=== PATIENT | female | born 1955 | race Caucasian/White ===

== ENCOUNTER 2018-03-14 18:12 | Inpatient (IN) ==
[2018-03-14 22:02] LABS: BASO# 0.07 X1000 (0.0-0.2); EOS# 0.13 X1000 (0.0-0.7); EOS% 1.9 % (0.0-10.0); HEMATOCRIT 35.6 % (37.0-47.0); HEMOGLOBIN 10.7 g/dL (12.0-16.0); LYMPH# 1.45 X1000 (1.2-3.4); MCH 23.9 PG (27-31); MCHC 30.1 g/dL (33-37); MCV 79.5 FL (81-99); MONO# 0.67 X1000 (0.11-0.59); MONO% 9.7 % (1.7-9.3); MPV 10.2 FL (7.4-10.4); NEUT# 4.59 X1000 (1.4-6.5); NEUT% 66.4 % (42.2-75.2); PLT 137 X1000 (130-400); RBC 4.48 XMIL (4.2-5.4); WBC 6.91 X1000 (4.8-10.8)
[2018-03-14 22:05] LABS: INR 1.12; PROTIME 15.3 Seconds (11.0-16.0)
[2018-03-14 22:06] LABS: PTT 33.2 Seconds (22.3-41.8)
[2018-03-14 22:24] LABS: AGAP 10; ALB/GLOB RATIO 0.9; ALKALINE PHOSPHATASE 120 U/L (32-104); BUN 4 mg/dL (8-22); CHLORIDE 104 mmol/L (98-107); COSMO 281; CREATININE 0.5 mg/dL (0.5-0.9); ESTIMATED GFR > 60; GLUCOSE 53 mg/dL (70-104); GOT 33 U/L (10-30); GPT 10 U/L (10-36); POTASSIUM 3.8 mmol/L (3.5-5.1); SODIUM 144 mmol/L (136-145); TCO2 30 mmol/L (25-35); TOTAL BILIRUBIN 0.61 mg/dL (0.20-1.00); TOTAL PROTEIN 6.5 g/dL (6.3-8.3)
[2018-03-14] MEDS ORDERED: NS 1,000 ML IV SCH (22:54)
--- NOTE | 2018-03-15 01:00 | HISTORY AND PHYSICAL ---
PRIMARY CARE PHYSICIAN: Dr. Packer. CHIEF COMPLAINT: Abdominal pain. HISTORY OF PRESENTING ILLNESS: A 62-year-old female with a history of diabetes mellitus type 2, hypertension, hyperlipidemia and, who initially had presented to [facility] complaining of abdominal pain. She was evaluated there. She abdominal CT done which did show metastatic disease. Subsequently she was transferred to [facility] due to lack of subspecialist care there. She was evaluated on the medical floor. She is a poor historian. Most of the history is obtained from family members. However, at time of my examination, patient had denied any headache, fever, chills, chest pain, shortness of breath, hemoptysis, but complained of abdominal pain. PAST MEDICAL HISTORY: Include diabetes mellitus type 2, hypertension, GERD hyperlipidemia. PAST SURGICAL HISTORY: Hernia repair, hysterectomy, bladder tack, colon resection, cholecystectomy. ALLERGIES: Sulfa and amitriptyline. CURRENT MEDICATIONS: As listed in the medication reconciliation sheet. SOCIAL HISTORY: A 40 pack years history of smoking. No history of alcohol or illicit drug use. FAMILY HISTORY: No history of coronary artery disease. REVIEW OF SYSTEMS: Fourteen point review of systems as listed in HPI. Other systems negative. PHYSICAL EXAMINATION: GENERAL: Cooperative, friendly female. She is resting more comfortably now. VITAL SIGNS: Temperature 98.1 degrees, pulse 108, respiration 18, blood pressure 110/64. She is saturating 95%. HEENT: Atraumatic, normocephalic. Extraocular movements intact. PERRLA. NECK: No masses. CHEST: Clear to auscultation. CARDIOVASCULAR: Regular rate and rhythm. ABDOMEN: Soft. Diffuse tenderness and firm. EXTREMITIES: No edema. NEUROLOGIC: She is awake, alert, oriented x2. GENITOURINARY: No bladder distention. SKIN: Warm. LABORATORIES AND STUDIES: Done at [facility] shows WBC 4.6, hemoglobin 10.6, hematocrit 35.5, platelets 96,000. Sodium 143, potassium 3.8, chloride 100, CO2 is 29, BUN is 4, creatinine 0.5, glucose 98. ASSESSMENT: This is a 62-year-old female with a history of diabetes mellitus type 2, hypertension, hyperlipidemia, and gastroesophageal reflux disease, who had presented initially to [facility] with complaint of abdominal pain. The patient was evaluated there. She had abdominal imaging done which did show metastatic disease to the liver with suspicion of possible hepatocellular carcinoma. Due to her presenting symptoms and lack of subspecialist care, she was transferred to [facility] for further evaluation and management. 1. Abdominal pain. 2. Abnormal CT showing metastatic disease to the liver. 3. Colitis. 4. Diabetes mellitus type 2. 5. Hypertension. PLAN: 1. We will admit patient to medical floor with telemetry. 2. Continue to keep patient NPO and supportive care with IV fluids, antiemetics, pain control. 3. We will consult Gastroenterology. 4. We will monitor blood glucose and put patient on sliding scale insulin regimen. 5. Monitor blood pressure. Resume antihypertensive agent. 6. Put patient on DVT prophylaxis with SCD. 7. We will continue to follow and reassess and make further recommendation based on patient's clinical course. cc: MD Zoraida Cee MD
[2018-03-15] MEDS: DILAUDID IV PRN ×5 (01:56→20:10)
[2018-03-15 06:09] LABS: BASO# 0.05 X1000 (0.0-0.2); BASO% 0.6 % (0.0-0.8); EOS# 0.11 X1000 (0.0-0.7); EOS% 1.2 % (0.0-10.0); HEMATOCRIT 34.8 % (37.0-47.0); HEMOGLOBIN 10.6 g/dL (12.0-16.0); IMM GRAN# 0.02 X1000 (0.0-0.04); IMM GRAN% 0.2 % (0.0-0.5); LYMPH# 1.14 X1000 (1.2-3.4); LYMPH% 12.7 % (20.5-51.1); MCH 24.2 PG (27-31); MCHC 30.5 g/dL (33-37); MCV 79.5 FL (81-99); MONO# 0.81 X1000 (0.11-0.59); NEUT# 6.87 X1000 (1.4-6.5); NEUT% 76.3 % (42.2-75.2); PLT 113 X1000 (130-400); RBC 4.38 XMIL (4.2-5.4); RDW 17.8 % (11.5-14.5)
[2018-03-15] MEDS: HUMULIN R SUBQ SCH ×3 (06:26→16:16)
[2018-03-15 06:35] LABS: AGAP 9; ALB/GLOB RATIO 0.9; ALBUMIN 3.1 g/dL (3.5-5.0); ALKALINE PHOSPHATASE 115 U/L (32-104); BUN 4 mg/dL (8-22); CALCIUM 7.7 mg/dL (8.8-10.2); CHLORIDE 101 mmol/L (98-107); COSMO 278; CREATININE 0.5 mg/dL (0.5-0.9); ESTIMATED GFR > 60; GLUCOSE 121 mg/dL (70-104); GOT 31 U/L (10-30); GPT 10 U/L (10-36); POTASSIUM 3.5 mmol/L (3.5-5.1); SODIUM 140 mmol/L (136-145); TCO2 30 mmol/L (25-35); TOTAL BILIRUBIN 0.66 mg/dL (0.20-1.00); TOTAL PROTEIN 6.4 g/dL (6.3-8.3)
[2018-03-15] MEDS: ZOFRAN IV PRN ×2 (07:02→20:17)
[2018-03-15] MEDS: LEVAQUIN 500 MG/D5W 500 MG/100 ML IVPB IV SCH (10:34)
[2018-03-15] MEDS: FLAGYL 500 MG/NS 500 MG/100 ML IVPB IV SCH ×2 (13:10→18:43)
--- NOTE | 2018-03-15 13:27 | Diag Imaging Result Doc PS360 ---
EXAM: US ABDOMEN-COMPLETE INDICATION: ascites/cirrhosis COMPARISON: None. FINDINGS: There has been a prior cholecystectomy. The common bile duct is dilated measuring up to 1.1 cm in diameter, likely due to postcholecystectomy status. The liver echotexture is very heterogeneous and the liver exhibits a nodular contour consistent with cirrhosis. There is a small hypoechoic nodule at the periphery of the liver measuring up to 1.1 cm. It is nonspecific. It may represent a tiny cyst. A solid nodule cannot completely be excluded. Portal venous flow is hepatopetal. The liver is somewhat prominent measuring up to 19.2 cm in length. The pancreas is obscured by gas. The mid and distal aorta are obscured. The remainder of the aorta and IVC are unremarkable. The spleen is enlarged measuring up to 16.9 cm. There is a 3.8 x 2.7 x 1.5 cm hypoechoic focus associated with the left kidney that appears to blend with the renal cortex. This probably represents a hypertrophied column of Surya, which is a normal variant. Consider follow-up, however. IMPRESSION: 1.Cirrhotic liver with a 1.1 cm hepatic nodule that is indeterminate. 2.Hepatosplenomegaly. 3.Hypoechoic focus associated with the left kidney that probably represents a hypertrophied column of Surya. Please see above discussion. Electronically signed by Jose Benedict 03/15/2018 1:24 PM
[2018-03-15] MEDS: NS 1,000 ML IV SCH (15:40)
[2018-03-15] MEDS: DUONEB (A & A) INH SCH ×3 (15:47→23:37)
[2018-03-15] MEDS ORDERED: BLISTEX MEDICATED BERRY LIP BALM TOP PRN (15:54)
[2018-03-15 16:17] LABS: URINE SOURCE CLEAN CATCH
[2018-03-15 16:21] LABS: BILIRUBIN URINE NEGATIVE (NEGATIVE); BLOOD URINE NEGATIVE (NEGATIVE); COLOR YELLOW; GLUCOSE URINE NEGATIVE (NEGATIVE); KETONE URINE NEGATIVE (NEGATIVE); LEUKOCYTES URINE MODERATE (NEGATIVE); NITRITE URINE NEGATIVE (NEGATIVE); PH URINE 6.5; PROTEIN URINE NEGATIVE (NEGATIVE); SP GRAVITY URINE 1.005; TURBIDITY URINE HAZY (CLEAR); UROBILINOGEN URINE NORMAL (NORMAL)
[2018-03-15 16:23] LABS: UR EPITHELIAL CELLS <10 /HPF (<10); URINE BACTERIA NEGATIVE /HPF; URINE RBC <10 /HPF (<10); URINE WBC 20-40 /HPF (<10)
--- NOTE | 2018-03-15 17:19 | PROGRESS NOTE ---
DATE: 03/15/2018 SUBJECTIVE: The patient complains of abdominal pain and abdominal fullness. OBJECTIVE: Vital Signs: Temperature 98.7, blood pressure 138/75, heart rate 96 , respirations 20, O2 sats 91% on 3 L nasal cannula. General: This is a chronically ill- appearing elderly female lying in bed in no acute distress. Heart: S1, S2 normal. Regular rate and rhythm. Lungs: Clear to auscultation bilaterally. Abdomen: Distended. Positive bowel sounds. Soft. Diffuse tenderness. Extremities: No edema, no cyanosis. Neurologic: The patient is alert and oriented x 4. LABS: White blood cell count 9, hemoglobin 10, hematocrit 34, platelets 113, 000. Sodium 140, potassium 3.5, chloride 101, CO2 30, BUN 4, creatinine 0.5, glucose 121, calcium 7.7. AST 31, ALT 10, alkaline phosphatase 115. Albumin 3.1, CEA 4. Abdominal ultrasound shows liver cirrhosis with a 1.1 cm hepatic nodule. Hepatosplenomegaly. ASSESSMENT AND PLAN: 1. Colitis. Continue with IV fluids and IV antibiotic therapy. Will await further recommendations from GI. 2. Suspected liver cirrhosis. Will initiate workup for the etiology. Will await recommendations from the temp recruiter. 3. Microcytic anemia. Will check iron studies. 4. Thrombocytopenia. The patient has hepatosplenomegaly. We will monitor the platelet count closely. Will avoid heparin. 5. Possible metastatic disease. Work up in progress. The patient will likely need a liver biopsy. 6. GI prophylaxis. Will continue on IV Protonix. 7. Diabetes mellitus type 2. We will monitor Accu-Cheks and start the patient on sliding scale insulin. 8. Hypertension. Controlled. 9. COPD. We will start the patient on bronchodilator therapy. Continue with supplemental oxygen. cc: Zoraida Richardson MD MTDD
--- NOTE | 2018-03-16 00:04 | CONSULTATION ---
DATE OF CONSULTATION: 03/15/2018 REFERRING PROVIDER: Dr. Zoraida Richardson. PRIMARY CARE PHYSICIAN: Dr. Melanie Jackson. INDICATION FOR CONSULTATION: 1. Abnormal CT scan. 2. Newly diagnosed cirrhosis. 3. Acute colitis. 4. Generalized abdominal pain. 5. Unplanned weight loss. HISTORY OF PRESENT ILLNESS: The patient is a 62-year-old white female whose past medical history includes diabetes, hypertension and hyperlipidemia. According to her daughter, 20 years ago she underwent a partial colectomy for colorectal cancer that was contained within a polyp but near the edge of the mucosa. She reports that she has had no followup in Oncology since her surgery. The patient also has a history of fatty liver and had a stent placed in her liver to drain the fluid years ago, but they are unable to recall the details. Over the last 3 months, her daughter reports that she has had increasing abdominal pain and ongoing weight loss of unknown cause. She presented to [facility] due to increasing severity of the diffuse abdominal pain. At that time, CT scan was performed in the [facility]. The findings are remarkable for new onset cirrhosis with innumerable space-occupying lesions in the liver which are new compared to her CT scan in their records from August 2017. There is a lesion in segment 8 that measures 1.4 x 1.3 cm. In addition, she was found to have diffuse mural thickening of the colon consistent with acute colitis. There are surgical changes consistent with ventral hernia repair. She has a small amount of ascites with no fluid loculation. The lungs appear to have only calcified granulomas, but were otherwise unremarkable except for dependent atelectasis. The spleen was enlarged. The gallbladder has been surgically removed. The pancreas, adrenal glands and kidneys as well as the lymphatics appeared normal. There is a mild fusiform dilation of the infrarenal abdominal aorta with atherosclerosis. Because of her lesions on CT scan, she was transported to [facility] for further evaluation. The patient reports abdominal pain and nausea. She denies headache, fever, chills, chest pain, hemoptysis. She notes some mild chest discomfort with exertion, mild shortness of breath with activity and the abdominal pain as noted above. The patient denies having fever, but the daughter reports that she has had low-grade temperature at home. Because of the above findings, we are asked to participate in her care. PAST MEDICAL HISTORY: 1. Malignant polyp with colorectal cancer, status post partial colectomy. 2. Diabetes 2. 3. Hypertension. 4. Hyperlipidemia. 5. GERD. 6. Colon polyps. 7. Newly diagnosed cirrhosis this admission. 8. Acute colitis this admission. 9. Fatty liver. 10. History of a liver stent placement (the patient is unable to recall the indications or findings). 11. COPD. 12. Anxiety. 13. Presumed gastroparesis. 14. Recurrent ventral hernias. PAST SURGICAL HISTORY: 1. Hernia repair. 2. Hysterectomy. 3. Bladder tack. 4. 8 inches of colon resected (location unknown). 5. Cholecystectomy. MEDICATION ALLERGIES: 1. Sulfa. 2. Amitriptyline. HOME MEDICATIONS: 1. Baclofen. 2. Symbicort. 3. Cymbalta. 4. Lasix. 5. Gabapentin. 6. Glimepiride. 7. Imdur. 8. Lisinopril. 9. Lorazepam. 10. Glucophage. 11. Reglan. 12. Singulair. 13. Prilosec. 14. Zofran. 15. Klor-Con. 16. Quetiapine. 17. Maxalt. 18. Simvastatin. 19. VESIcare. 20. Sucralfate. 21. Tiotropium bromide (Spiriva). 22. COPD. 23. Anxiety. 24. Gastroparesis correction presumed gastroparesis. 25. Constipation. Correction gastroparesis number next recurrent ventral hernias. SOCIAL HISTORY: Remarkable in that the patient currently smokes 1 pack per day. She has continued to smoke since her teenage years. She is unable to tell me exactly how many years. FAMILY HISTORY: Negative for colon cancer. She denies a family history of heart disease as well. PHYSICAL EXAMINATION: Vital Signs: On exam, her blood pressure is 156/75, pulse 94, respirations 20, temperature of 97.8 degrees. She has an oxygen saturation of 99% on 3 L nasal cannula. General: She reports 8-9/10 abdominal pain. During the exam, the patient is rocking in the chair. She is holding her abdomen. HEENT: Notable for erythema around the orbit. There is no evidence of jaundice. Her oropharyngeal mucosal membranes are dry. Pulmonary: Her lungs are coarse with occasional end-expiratory wheeze. Cardiovascular: Exam reveals regular rate and rhythm with no gallops or rubs. Abdomen: Her abdomen is soft, but diffusely tender and distended. There is no rebound or guarding. Extremities: Negative for cyanosis, clubbing, or edema. Neurologic: The patient is alert and oriented. OBJECTIVE DATA: Reveals a hemoglobin of 10.6 with hematocrit of 34.8 and a white count of 9.0 with 113,000 platelets. Sodium is 140, potassium 3.5, chloride 101, CO2 of 30, BUN 4, creatinine 0.5 with a glucose of 121. Calcium is 7.7, total bilirubin 0.6, AST 31, ALT 10, alkaline phosphatase 115, total protein 6.4 and albumin 3.1. Her CRP is 14.18. Her CEA is 4.0. Her urinalysis is positive for 20 to 40 white blood cells with moderate leukocytes. IMPRESSION: 1. Abnormal CT scan. 2. Newly diagnosed cirrhosis with possible metastatic lesions. 3. Acute colitis. 4. Diffuse abdominal pain. 5. Ongoing weight loss. 6. Personal history of colon cancer. 7. Personal history of fatty liver. RECOMMENDATION: 1. With regard to the abnormal CT, I recommend that we obtain an MRI in the morning to further define the multiple lesions seen on CT scan. Her abdominal ultrasound today was reviewed and is only notable for 1 lesion which is in conflict with the reported findings on CT scan. We will need this test to help us to determine the etiology of the hepatic lesions. 2. The patient has new onset cirrhosis. Therefore, I recommend that she have a liver biopsy tomorrow. This will help us to determine if the lesions seen on CT represent metastasis from possible colon cancer given her personal history of colon cancer or if it represents another lesion. This will allow us to modify her treatment plan accordingly. 3. The patient has acute colitis. I agree with the Levaquin and Flagyl. 4. She reports diffuse abdominal pain. I agree with pain control. I would use narcotics sparingly given the presence of acute colitis. Please also check stool studies for C diff, fecal white blood cell and culture. 5. The patient's ongoing weight loss is concerning especially in light of the findings. I will monitor her for right now pending the results of her ongoing evaluation. I will begin clear liquids tonight. 6. The patient has a history of malignant polyps requiring partial colectomy. She will need a full colonoscopy as an outpatient depending on the results of the liver biopsy. 7. The patient has a history of fatty liver. Her liver tests are only minimally elevated. I await the results of her liver biopsy. 8. The patient has not been followed by Hematology/Oncology. I discussed her care with Dr. Mari Wood, who will see her tomorrow. 9. I agree with the labs that are currently pending including assessment with an alpha fetoprotein level. She has an elevated CEA, which is hard to interpret in the setting of active smoking. 10. Additional recommendations to follow based on her clinical course and the results of her ongoing evaluation. cc: MD Tara Burger MD Katherine Takundwa, MD
[2018-03-16] MEDS: HUMULIN R SUBQ SCH ×5 (00:38→23:08)
[2018-03-16] MEDS: BENADRYL IV PRN ×4 (00:57→17:05)
[2018-03-16] MEDS: FLAGYL 500 MG/NS 500 MG/100 ML IVPB IV SCH ×4 (00:57→23:09)
[2018-03-16] MEDS: DILAUDID IV PRN ×4 (01:45→21:25)
[2018-03-16] MEDS: ZOFRAN IV PRN ×2 (01:54→18:27)
[2018-03-16] MEDS: NS 1,000 ML IV SCH ×4 (02:41→23:07)
[2018-03-16] MEDS: DUONEB (A & A) INH SCH ×4 (03:56→21:45)
[2018-03-16 05:51] LABS: BASO# 0.05 X1000 (0.0-0.2); BASO% 0.6 % (0.0-0.8); EOS# 0.04 X1000 (0.0-0.7); EOS% 0.5 % (0.0-10.0); HEMATOCRIT 34.1 % (37.0-47.0); HEMOGLOBIN 10.2 g/dL (12.0-16.0); IMM GRAN# 0.04 X1000 (0.0-0.04); IMM GRAN% 0.5 % (0.0-0.5); LYMPH% 14.5 % (20.5-51.1); MCH 23.8 PG (27-31); MCHC 29.9 g/dL (33-37); MCV 79.5 FL (81-99); MONO# 0.81 X1000 (0.11-0.59); MONO% 9.8 % (1.7-9.3); NEUT# 6.14 X1000 (1.4-6.5); NEUT% 74.1 % (42.2-75.2); PLT 109 X1000 (130-400); RBC 4.29 XMIL (4.2-5.4); RDW 17.5 % (11.5-14.5); WBC 8.28 X1000 (4.8-10.8)
[2018-03-16 06:44] LABS: AGAP 9; ALB/GLOB RATIO 0.9; ALBUMIN 3.3 g/dL (3.5-5.0); ALKALINE PHOSPHATASE 103 U/L (32-104); BUN 3 mg/dL (8-22); CALCIUM 8.2 mg/dL (8.8-10.2); CHLORIDE 102 mmol/L (98-107); COSMO 282; CREATININE 0.5 mg/dL (0.5-0.9); ESTIMATED GFR > 60; GLUCOSE 136 mg/dL (70-104); GOT 37 U/L (10-30); GPT 12 U/L (10-36); POTASSIUM 3.9 mmol/L (3.5-5.1); SODIUM 142 mmol/L (136-145); TCO2 31 mmol/L (25-35); TOTAL BILIRUBIN 0.78 mg/dL (0.20-1.00); TOTAL PROTEIN 6.8 g/dL (6.3-8.3)
[2018-03-16 09:33] LABS: HEPATITIS PROFILE ACUTE SEE COMMENTS
--- NOTE | 2018-03-16 10:43 | Diag Imaging Result Doc PS360 ---
EXAM: MRI MRCP (ABD W/O CONTRAST) INDICATION: CT scan [facility] with possible liver mets TECHNIQUE: COMPARISON: CT abdomen and pelvis with IV contrast performed at an outside facility dated 03/14/2018. No prior MRI is available for comparison. FINDINGS: The liver is cirrhotic. There are innumerable low signal nodules scattered diffusely throughout the liver parenchyma. This is similar to the recent CT. Further evaluation of the nodules is difficult when no IV contrast. Regenerative nodules related to cirrhosis are possible. However, would be difficult to completely exclude metastatic disease. The spleen is enlarged white previous study. There is trace ascites tracking around the liver and spleen, stable. The kidneys are unremarkable with no evidence of renal mass. The pancreas and adrenal glands are grossly unremarkable. The visualized segments of the bowel are unremarkable by MRI. No filling defects or strictures are identified in the common bile duct. IMPRESSION: 1.Innumerable small solid nodules throughout the liver that are similar to the recent CT. Please see above discussion. 2.Cirrhosis. 3.Splenomegaly. 4.Trace ascites around the liver and spleen. Electronically signed by Jose Benedict 03/16/2018 10:41 AM
[2018-03-16] MEDS ORDERED: ATIVAN IV ONE (11:30)
[2018-03-16] MEDS: ATIVAN PO SCH ×3 (12:01→21:25)
--- NOTE | 2018-03-16 12:46 | PROGRESS NOTE ---
DATE: 03/16/2018 SUBJECTIVE: Patient reports pain in the right upper quadrant, still there and even though she is receiving IV medication, she is still hurting. Denies any fever or chills. Reports some nausea. OBJECTIVE: Vital Signs: Temperature 98.6 degrees, heart rate 97, respiratory rate 12, blood pressure 146/62, O2 saturation 97% on 3 L nasal cannula. General: This is a chronically ill- looking 62-year-old female lying in bed, in no acute distress. HEENT : Head is normocephalic, atraumatic. Cardiovascular: S1, S2 heard. No murmurs, gallops , or rubs. Regular rate and rhythm. Respiratory: Clear bilaterally to auscultation. No work of breathing or using accessory muscles. Abdomen: Soft, a little bit distended, but tender to palpation in the right upper quadrant. No signs of peritoneal irritation. Junior negative. Bowel sounds present. No organomegaly. Extremities: No clubbing, cyanosis, or edema. Peripheral pulses present in both legs. Neurological: Patient is alert and oriented x3. Moves 4 extremities. LABORATORY DATA: White cell count is 8.28, hemoglobin 10.2, hematocrit 34.1, platelets 109; with BMP that shows glucose 136. Normal bilirubin including AST 37 and hepatitis panel is negative. CHAVEZ screen with reflex also negative. ASSESSMENT AND PLAN: 1. Liver cirrhosis with multiple liver metastasis. The magnetic resonance cholangiopancreatography (MRCP) done today showed innumerable small solid nodule throughout the liver that are similar to recent CT, showed also cirrhosis and splenomegaly. So, at this time, I think the next step is to do a liver biopsy. We do not know if this is a primary cancer coming from the liver or is metastasis for possible colon cancer. The patient reported that she had an endoscopy 1 year ago, and she was informed that was fine. So , at this point, we are going to continue with the same management. In the CT scan, it also showed colitis. So we will continue with Levaquin and Flagyl. 2. Thrombocytopenia most likely related to hepatic splenomegaly. Platelet count , basically the same in comparing with yesterday today is 109. Today, we will continue to monitor but no signs of bleeding. 3. Diabetes mellitus type 2. We will continue with Accu-Cheks before meals and also at bedtime. 4. Chronic obstructive pulmonary disease. Patient is on DuoNeb every 4 hours p.r.n. We will continue with same management. 5. Hypertension. Blood pressure is under control. We will continue with same management. 6. Disposition. Dr. Wood of Hematology/Oncology, is supposed to see this patient today to see what will be the next step in management. Liver biopsy is going to be done today, and we will go from there. cc: MD Zoraida Woodall MD MTDD
--- NOTE | 2018-03-16 13:33 | Diag Imaging Result Doc PS360 ---
EXAM: US LIVER BIOPSY W S/I 03/16/2018 HISTORY: If MRI confirms mets to liver, pls bx TECHNIQUE: Ultrasound-guided liver biopsy for General tissue COMMENT: The risks and benefits of the procedure including the possibility of bleeding, infection, reaction to lidocaine were discussed with patient and her daughter and they agreed to the procedure. Following sterile preparation of the skin anterior to the left hepatic lobe and administration of 1% lidocaine to the skin and deeper soft tissues, an 18-gauge coaxial Temno core biopsy needle was employed to obtain three cores from the liver. There are no immediate complications. IMPRESSION: Successful ultrasound-guided liver biopsy. Electronically signed by Devonte Newman 03/16/2018 1:31 PM
[2018-03-16] MEDS: LEVAQUIN 500 MG/D5W 500 MG/100 ML IVPB IV SCH (14:10)
[2018-03-16] MEDS: NICODERM PATCH TD SCH (14:40)
[2018-03-17] MEDS: DUONEB (A & A) INH SCH ×2 (04:02→07:36)
[2018-03-17] MEDS: FLAGYL 500 MG/NS 500 MG/100 ML IVPB IV SCH ×2 (04:27→11:23)
[2018-03-17] MEDS: BENADRYL IV PRN (04:28)
[2018-03-17] MEDS: DILAUDID IV PRN ×2 (04:28→09:22)
[2018-03-17] MEDS: ZOFRAN IV PRN ×2 (04:35→09:23)
[2018-03-17 06:17] LABS: BASO# 0.03 X1000 (0.0-0.2); BASO% 0.4 % (0.0-0.8); EOS# 0.02 X1000 (0.0-0.7); EOS% 0.2 % (0.0-10.0); HEMATOCRIT 34.3 % (37.0-47.0); HEMOGLOBIN 10.4 g/dL (12.0-16.0); LYMPH# 1.07 X1000 (1.2-3.4); LYMPH% 13.3 % (20.5-51.1); MCH 23.6 PG (27-31); MCHC 30.3 g/dL (33-37); MCV 77.8 FL (81-99); MONO# 0.87 X1000 (0.11-0.59); MONO% 10.8 % (1.7-9.3); MPV 9.8 FL (7.4-10.4); NEUT# 6.07 X1000 (1.4-6.5); NEUT% 75.3 % (42.2-75.2); PLT 112 X1000 (130-400); RBC 4.41 XMIL (4.2-5.4); RDW 17.8 % (11.5-14.5); WBC 8.06 X1000 (4.8-10.8)
[2018-03-17] MEDS: HUMULIN R SUBQ SCH ×2 (06:28→11:44)
[2018-03-17] MEDS: NS 1,000 ML IV SCH ×2 (06:29→09:34)
[2018-03-17 08:09] VITALS: BP 158/57
[2018-03-17] MEDS: ATIVAN PO SCH ×2 (09:22→12:41)
[2018-03-17] MEDS: NICODERM PATCH TD SCH (09:23)
[2018-03-17] MEDS: LEVAQUIN 500 MG/D5W 500 MG/100 ML IVPB IV SCH (09:23)
[2018-03-17] MEDS ORDERED: SOLU-CORTEF IV ONE (14:23)
[2018-03-17] MEDS ORDERED: BENADRYL IV ONE (14:24)
--- NOTE | 2018-03-17 15:40 | DISCHARGE SUMMARY ---
ADMISSION DATE: 03/14/2018 DISCHARGE DATE: 03/17/2018 DISCHARGE DIAGNOSES: 1. Small solid nodules in the liver. 2. Abdominal pain, improved. 3. Acute colitis under treatment. 4. Diabetes mellitus type 2. 5. Hypertension. CONSULTATIONS: 1. Dr. Sharon Jeff from GI. 2. Dr. Mari Wood from Hematology/Oncology. PROCEDURES: 1. Abdominal ultrasound showed cirrhotic liver with 1.1 cm hepatic nodule that is indeterminate. Hepatosplenomegaly and hypoechoic follicles associated with the left kidney that probably represent hypertrophic column of Surya. 2. MRCP showed innumerable small solid nodules throughout the liver that are similar to recent CT and also showed cirrhosis, splenomegaly and trace ascites around the liver and spleen. 3. Liver biopsy ultrasound performed by Dr. Newman. HOSPITAL COURSE: This is a 62-year-old female who originally presented to [facility] complaining of abdominal pain and because she was evaluated on CT of the abdomen showed metastatic disease in the liver. That is why she was transferred over here. Basically she was admitted for workup. Dr. Jeff from GI and Dr. Wood from Hematology/Oncology has been involved in her care. The decision was made after MRCP was done to do a liver biopsy to confirm what those lesions are. That procedure was successfully performed. The patient is still complaining of some pain in the right upper quadrant. Talking to the patient, she thinks that she is going to be fine with the Percocet that she takes for chronic back pain. Hematology/Oncology is not planning to do anything different except wait for the results of biopsy, so patient is going to be discharged in stable condition. She is going to be seen by Dr. Wood next week for review of the biopsy results and the plan depending upon the results. DISCHARGE PHYSICAL EXAMINATION: Vital Signs: Temperature 98.8, heart rate 109 , respiratory rate 16, blood pressure 158/57, O2 sat 100% 2 L nasal cannula. General: This is a 62-year-old female lying in bed, in no acute distress. HEENT: Head is normocephalic, atraumatic. Neck: No JVD noted. No carotid bruit. Cardiovascular: S1, S2 heard. No murmurs, gallops, or rubs. Regular rate and rhythm. Respiratory: Clear bilaterally to auscultation. No work of breathing or using accessory muscles. Abdomen: Soft, a little bit distended. Mildly tender to palpation in the right upper quadrant. Junior's sign negative. No signs of peritoneal irritation. No organomegaly noted. Bowel sounds present. Extremities: No clubbing, cyanosis or edema. Peripheral pulses present in both legs. Neurologic: Patient alert oriented x 3. Moves 4 extremities. DISCHARGE DISPOSITION: Home to self-care. FOLLOWUP: 1. Follow up with Dr. Mari Wood in a week for review of the results of biopsy. 2. Follow up with Dr. Sharon Jeff from GI in 1 to 2 weeks. LIST OF MEDICATIONS: 1. Levofloxacin 750 mg 1 tablet p.o. daily for 10 days. 2. Metronidazole 500 mg 1 tablet p.o. 3 times per day for 10 days. 3. Cymbalta 60 mg 1 tablet p.o. b.i.d. 4. Glimepiride 4 mg 1 tablet p.o. b.i.d. 5. Gabapentin 600 mg 1 tablet p.o. 3 times per day. 6. Simvastatin 40 mg 1 tablet p.o. at bedtime. 7. Potassium chloride 10 mEq p.o. daily. 8. VESIcare 10 mg 1 tablet p.o. daily. 9. Lisinopril 10 mg 1 tablet p.o. daily. 10. Seroquel 200 mg p.o. at bedtime. 11. Montelukast 10 mg 1 tablet p.o. daily. 12. Imdur 30 mg 1 tablet p.o. daily. 13. Sucralfate 1 g p.o. every 6 hours as needed. 14. Prilosec 40 mg 1 tablet p.o. daily. 15. Metformin 1000 mg twice daily. 16. Lorazepam 1 mg p.o. 4 times per day. 17. Lasix 20 mg 1 tablet p.o. daily. 18. Maxalt 10 mg 1 tablet p.o. every 8 hours as needed. 19. Baclofen 10 mg 1 tablet p.o. 3 times per day. 20. Zofran 4 mg every 8 hours as needed for nausea. 21. Percocet 10 mg 1 to 2 tablets p.o. every 4 hours as needed for pain. TIME SPENT: Time discharging this patient 38 minutes. cc: MD KILO Woodall
--- NOTE | 2018-03-17 19:11 | PROGRESS NOTE ---
DATE: 03/16/2018 SUBJECTIVE: The patient's daughter states that she is in severe pain. The patient is actually writhing around on the bed. She underwent a liver biopsy today for further evaluation of the multiple hepatic lesions noted on abdominal ultrasound, CT and MRCP. The patient states that she is unable the eat. She describes epigastric and right upper quadrant pain. At bedside the patient is actively dry heaving. PHYSICAL EXAM: Vital Signs: Her blood pressure is 146/62, pulse 97, respirations 12, temperature of 98.6 degrees. HEENT: Negative for jaundice. Her oropharyngeal mucosa membranes are dry. Pulmonary: Breath sounds are coarse. Cardiovascular: Reveals a tachycardia. Abdomen: Soft with moderate epigastric to right upper quadrant tenderness but no rebound or guarding. Her extremities are very tremulous but there is no edema. She reports 8/10 abdominal pain on exam. OBJECTIVE DATA: Reveals a hemoglobin of 10.2 with hematocrit of 34.1 and a white count of 8.28. She has 109,000 platelets. Sodium is 142, potassium 3.9, chloride 102, CO2 31, BUN 3, creatinine 0.5 with a glucose of 136. Calcium is 8.2, total bilirubin 0.78, AST 37, ALT 12, alkaline phosphatase 103, total protein 6.8 and albumin 3.3. RECOMMENDATION: 1. Today, the patient has not been able to tolerate a diet. I recommend continued inpatient care until the patient is able to tolerate at least 50% of her oral intake. 2. We await the liver biopsy results. 3. I recommend pain control given that she likely has metastatic disease. 4. We have consulted Dr. Mari Wood who is waiting to see the patient. 5. Depending on the liver biopsy results, she will need an EGD and colonoscopy to further evaluate the pain an to identify potential treatable lesion. 6. We await the outstanding test results to help determine the cause of her abdominal pain, nausea and vomiting. 7. Both her CEA and alpha fetoprotein are elevated which are worrisome for gastrointestinal malignancy. We will need to address treatment status and code status once we have the test results back. Therefore, at this time, we will continue the plan as previously discussed with Dr. Zoraida Richardson. cc: Mari Wood MD
--- NOTE | 2018-03-19 03:38 | HEMO/ONC CONSULTATION ---
DATE: 03/16/2018 REQUESTING PHYSICIAN: Consultation requested by Dr. Jeff. REASON FOR CONSULTATION: Consultation is for a metastatic liver mass. HISTORY OF PRESENT ILLNESS: Ms. Mosqueda is a 62-year-old, female who initially presented to [facility] emergency department with abdominal pain. She had an abdominal CT done while there which showed some metastatic disease. She was then transferred to [facility] for further evaluation. At this time, the patient has been evaluated by GI. She has actually had an MRCP earlier today. Still waiting on her going down for a liver biopsy via ultrasound-guided. The patient is currently rather anxious. She does report having a history of several polyps in the past. She thought she had part of her colon removed previously. She denies any history of cancer. We have been consulted due to the findings and have been asked to help with the patient's workup. PAST MEDICAL HISTORY: 1. Diabetes mellitus type 2. 2. Hypertension. 3. GERD. 4. Hyperlipidemia. PAST SURGICAL HISTORY: 1. Hernia repair. 2. Hysterectomy. 3. Bladder tack. 4. Colon resection. 5. Cholecystectomy. SOCIAL HISTORY: The patient has a 40 pack-year history of smoking. She denies any alcohol or illicit drug use at this time. FAMILY HISTORY: Positive for coronary artery disease. REVIEW OF SYSTEMS: Twelve point review of systems has been completed and negative except for as expressed in the HPI. PHYSICAL EXAMINATION: Vital Signs: Temperature 98.6 degrees, heart rate 104, respirations 14, blood pressure 146/62, O2 saturation 92% on 3 L nasal cannula. General: This is a rather anxious, female, sitting up in her hospital bed. She has 2 family members at bedside. HEENT: Head normocephalic, atraumatic. Eyes: Pupils equal, round, reactive. Ears, Nose, Throat, Neck, Mouth: Mucosa is normal. Cardiovascular: S1-S2 heard. No murmurs, gallops, rubs appreciated. Respiratory: Chest is clear. Normal respiratory effort. Gastrointestinal: Abdomen is slightly distended. There are positive bowel sounds noted. Diffuse tenderness. Musculoskeletal: No bony abnormalities. Extremities: Some trace edema. Neurologic: The patient is alert and oriented. LABS AND STUDIES: White blood cells 8.28, hemoglobin 10.2, hematocrit 34.1, platelet count 109,000. Sodium 142, potassium 3.9, chloride 102, CO2 31, BUN 3, creatinine 0.5 , glucose 136. MRCP shows innumerable small solid nodules throughout the liver that are similar to the recent CT scan done at [facility]. Cirrhosis, splenomegaly, trace ascites around the liver and spleen. ASSESSMENT AND PLAN: 1. Metastatic liver disease. The patient is to go down for a liver biopsy here in the next couple hours. We discussed that we will need a diagnosis based off of that biopsy. We will wait for the final pathology to come back. The patient can follow up with us as an outpatient to review those findings once they become available. They previously have checked a CEA which was found to be 4.0, AFP is 10.4 which is only mildly elevated. She also had a negative hepatitis panel. 2. Liver cirrhosis, per gastroenterology. They have been consulted. 3. Colitis. She will continue on Levaquin and Flagyl. Dr. Jeff following. 4. Diabetes mellitus type 2. She will continue with sliding scale insulin per protocol. 5. Anxiety. She went and discussed with the nurse, and they are about to give her some intravenous Ativan before she goes down for her liver biopsy. Thank you for consulting us on Ms. Mosqueda. We will continue to follow along and adjust treatment plan per hospital course. Dictated by LETITIA Bedolla for Mari Wood MD cc: Mari Wood MD I have seen and examined the patient and the above note reflects my history, physical , and assessment and plan. Mari Wood MD [facility]
== END 2018-03-17 15:32 | disposition home or self-care (01) | DRG 433 ==
LOC: 4N 18:12 → SUATTDRO 18:12
PROVIDERS: ATTEND Internal Medicine
CPT/HCPCS: 47000; 74181; 76700; 76942; 80053; 80074; 81001; 82103; 82105; 82378; 82390; 82948; 83516; 83605; 85025; 85610; 85651; 85730; 86038; 86039; 86140; 87040; 87088; 88305; 94640; 94761; A9270; J1170; J1200; J1720; J1956; J2060; J2405; J7030; S0030; XXXXX

== ENCOUNTER 2018-03-19 18:26 | Inpatient (IN) ==
[2018-03-19 19:04] LABS: BASO# 0.02 X1000 (0.0-0.2); BASO% 0.2 % (0.0-0.8); EOS# 0.03 X1000 (0.0-0.7); EOS% 0.3 % (0.0-10.0); HEMATOCRIT 34.4 % (37.0-47.0); HEMOGLOBIN 10.5 g/dL (12.0-16.0); IMM GRAN# 0.02 X1000 (0.0-0.04); IMM GRAN% 0.2 % (0.0-0.5); LYMPH# 1.23 X1000 (1.2-3.4); LYMPH% 13.5 % (20.5-51.1); MCH 24.2 PG (27-31); MCHC 30.5 g/dL (33-37); MCV 79.4 FL (81-99); MONO# 0.87 X1000 (0.11-0.59); MONO% 9.5 % (1.7-9.3); MPV 9.6 FL (7.4-10.4); NEUT# 6.97 X1000 (1.4-6.5); NEUT% 76.3 % (42.2-75.2); PLT 130 X1000 (130-400); RBC 4.33 XMIL (4.2-5.4); RDW 19.3 % (11.5-14.5); WBC 9.14 X1000 (4.8-10.8)
[2018-03-19 19:11] LABS: ALLEN TEST YES; BE 0.8 mmoll (-3.0-3.0); BLOOD TYPE ARTERIAL; HCO3-(ACT) 25.4 mmoll (20.0-26.0); METHB 0.9 % (0.0-1.5); O2(CT) 12.6 mL/dL (15.0-23.0); PCO2(98.6) 39 mmHg (35-45); PO2(98.6) 90 mmHg (60-100); SAMPLE BLOOD; SAO2 99.4 % (95.0-100.0); THB 9.9 g/dL (11.5-17.4); pH(98.6) 7.42 (7.35-7.45)
[2018-03-19 19:12] LABS: MODALITY CANNULA
[2018-03-19 19:15] LABS: O2HB 89.4 % (95.0-99.0)
[2018-03-19 19:17] LABS: ESTIMATED GFR > 60
[2018-03-19 19:28] LABS: AGAP 15; ALB/GLOB RATIO 0.8; ALBUMIN 2.7 g/dL (3.5-5.0); ALKALINE PHOSPHATASE 95 U/L (32-104); BUN 3 mg/dL (8-22); CALCIUM 8.1 mg/dL (8.8-10.2); CHLORIDE 99 mmol/L (98-107); COSMO 278; CREATININE 0.6 mg/dL (0.5-0.9); GLUCOSE 162 mg/dL (70-104); GOT 31 U/L (10-30); GPT 10 U/L (10-36); SODIUM 139 mmol/L (136-145); TCO2 25 mmol/L (25-35); TOTAL BILIRUBIN 0.57 mg/dL (0.20-1.00); TOTAL PROTEIN 6.1 g/dL (6.3-8.3)
[2018-03-19 19:30] LABS: POTASSIUM 2.5 mmol/L (3.5-5.1)
--- NOTE | 2018-03-19 20:02 | Diag Imaging Result Doc PS360 ---
EXAM: CHEST-2 VIEWS - 03/19/2018 HISTORY: ams TECHNIQUE: Chest two views COMPARISON: None. FINDINGS: Heart size is normal. There is mild tortuosity of the thoracic aorta. There are scattered small granulomas from old granulomatous disease. There is mild subsegmental atelectasis at the left base. There is no consolidation, vascular congestion, pleural effusion, or pneumothorax identified. IMPRESSION: Mild atelectasis at left base. No other evidence of acute disease. Electronically signed by Tonny Archuleta 03/19/2018 7:59 PM
[2018-03-19] MEDS ORDERED: ATIVAN IV ONE (20:39)
[2018-03-19] MEDS ORDERED: FENTANYL IV ONE (20:39)
[2018-03-19 20:55] LABS: INR 1.33; PROTIME 17.6 Seconds (11.0-16.0)
[2018-03-19 21:14] LABS: URINE SOURCE CATH
[2018-03-19 21:16] LABS: BILIRUBIN URINE NEGATIVE (NEGATIVE); BLOOD URINE NEGATIVE (NEGATIVE); COLOR ORANGE; GLUCOSE URINE NEGATIVE (NEGATIVE); KETONE URINE NEGATIVE (NEGATIVE); LEUKOCYTES URINE NEGATIVE (NEGATIVE); NITRITE URINE NEGATIVE (NEGATIVE); PROTEIN URINE TRACE mg/dL (NEGATIVE); SP GRAVITY URINE 1.007; TURBIDITY URINE CLEAR (CLEAR); UROBILINOGEN URINE NORMAL (NORMAL)
[2018-03-19 21:17] LABS: UR EPITHELIAL CELLS <10 /HPF (<10); URINE BACTERIA NEGATIVE /HPF; URINE RBC <10 /HPF (<10); URINE WBC <10 /HPF (<10)
[2018-03-19] MEDS ORDERED: NS 1,000 ML ONE (21:45)
--- NOTE | 2018-03-19 21:54 | Diag Imaging Result Doc PS360 ---
EXAM: CT HEAD W/WO CONTRAST - 03/19/2018 HISTORY: ams/mets - Dr Mendoza TECHNIQUE: CT head without and with intravenous contrast COMPARISON: None. FINDINGS: There is no evidence of intracranial hemorrhage, mass effect, midline shift, or hydrocephalus. There is no evidence of infarct, although acute infarcts may not be immediately visible. There is no abnormal enhancement identified. There are small basal ganglia calcifications compatible with chronic process noted. There is a mucous retention cyst noted at the inferior right maxillary sinus. IMPRESSION: No visible acute intracranial abnormality. No indication of metastatic disease to the brain. This exam was performed using automated exposure control, adjustment of mA or kV according to patient size, and/or use of iterative reconstruction technique. Electronically signed by Tonny Archuleta 03/19/2018 9:44 PM
[2018-03-20] MEDS ORDERED: SODIUM CHLORIDE 0.9% INJ SCH (01:08)
[2018-03-20] MEDS ORDERED: MOVANTIK PO ONE (01:08)
[2018-03-20] MEDS ORDERED: PROTONIX IV SCH (01:08)
[2018-03-20] MEDS ORDERED: ZOFRAN IV PRN (01:08)
[2018-03-20] MEDS ORDERED: COMPAZINE IV PRN (01:08)
[2018-03-20] MEDS ORDERED: TYLENOL PO PRN (01:08)
[2018-03-20] MEDS: POTASSIUM CHLORIDE 20 MEQ/SWI 20 MEQ/100 ML IVPB IV SCH ×2 (01:56→09:30)
[2018-03-20] MEDS: FENTANYL IV PRN ×2 (02:27→06:45)
[2018-03-20] MEDS: POTASSIUM CHLORIDE 10 MEQ in NS 1,000 ML IV SCH ×2 (04:00→10:30)
[2018-03-20] MEDS ORDERED: LOVENOX SUBQ SCH (06:00)
--- NOTE | 2018-03-20 06:56 | HISTORY AND PHYSICAL ---
PRIMARY CARE PHYSICIAN: Melanie Jackson MD REASON FOR ADMISSION: Hypotension and unresponsiveness at home this afternoon. HISTORY OF PRESENT ILLNESS: Ms. Yolande Mosqueda is an unfortunate 62-year-old woman with metastatic disease of unknown primary. She also has a history of cirrhosis, diabetes, hypertension, COPD, migraines. She was brought in today by her family who noticed that she was difficult to arouse. They also check her O2 saturation and it was in the 80s. They then called EMS and they checked her and had a hard time arousing her, even with a sternal rub and she was found to be hypotensive in the 80 to 90 systolic range. They too also confirmed that she was hypoxic. They then put her on 2 to 3 L nasal cannula O2. She has since been in the mid 90s and spontaneously aroused without any reversal agents or pain medication. The family did report that a couple of hours prior to her becoming unresponsive, she had been given some Percocet. The patient still complained of intensive diffuse abdominal pain. She is AO x3 when I saw her. She says the pain is a sharp stabbing pain in the right periumbilical area with no radiation. The pain she says is constant but waxes and wanes with no specific aggravating or relieving factors. Her last bowel movement was over a week ago, but for the last 2 weeks she said her oral intake has been dismal. She only has had a few sips or water and ice chips. She says when she tries to eat anything other than ice chips she tends to throw up. She reports her urine output has also declined. Currently she denies any acute cardiorespiratory complaints. She denies bleeding from any orifice. She denies any fever or chills. No focal neurological complaints at this time. REVIEW OF SYSTEMS: The patient states that the aforementioned pain is only lasting 1 to 2 minutes and spontaneously eases but never resolves completely. No new rash or arthralgia. Positive findings noted in the HPI. No polyuria or polydipsia. ALLERGIES: Elavil and sulfa medication. HOME MEDICATIONS: 1. Seroquel 200 mg at bedtime. 2. Simvastatin 40 mg at bedtime. 3. Maxalt 10 every 8 p.r.n. 4. Baclofen 10 t.i.d. 5. Symbicort 2 puffs b.i.d. 6. Cymbalta 60 mg b.i.d. 7. Lasix 20 mg daily. 8. Gabapentin 600 mg t.i.d. 9. Amaryl 4 mg b.i.d. 10.Imdur 30 mg daily. 11.Lisinopril 10 mg daily. 12.Lorazepam 1 mg 4 times a day. 13.Metformin 1000 mg b.i.d. 14.Reglan 10 mg t.i.d. 15.Singulair 10 mg every evening. 16.Potassium chloride 10 mEq daily. 17.VESIcare 10 mg daily. 18.Carafate 1 g every 6. 19.Oxycodone 1 to 2 tablets every 4 p.r.n. 20.Levaquin 750 mg daily. SOCIAL HISTORY: She has a 40 pack-year history of smoking. No alcohol or illicit drug use. FAMILY HISTORY: No documented family history of colon cancer. PAST SURGICAL HISTORY: Hernia repair, hysterectomy, bladder tack, partial colon resection, cholecystectomy. LABORATORY DATA: White count 95, hemoglobin and hematocrit 10 and 34, platelets 130, 76% neutrophils. Potassium 2.5, glucose 162, AST 31, ALT 10. Calcium 8.1. PT is 17, INR 1.3, PTT 30. Urinalysis is essentially clear; pH 7.42, pCO2 39, pO2 90. He is on 4 L. Chest x-ray film showed mild atelectasis of the left base; otherwise no evidence of acute disease. Head CT with contrast: No visible acute intracranial abnormality. No indication of metastatic disease to the brain. PHYSICAL EXAMINATION: GENERAL: Middle aged woman who is in moderate distress from pain. She is alert and oriented to person, place and time with flat affect. HEENT: Head is normocephalic, atraumatic. Eyes: PERRL. EOMI. She is anicteric but pale. ENT: Oropharynx examination is grossly unremarkable except for mild xerostomia. No cyanosis. VITAL SIGNS: Her blood pressure is 98/46, heart rate is 101, respirations 17, temperature 98.6, O2 saturation 99% on 4 L. NECK: Supple. No JVD, carotid bruits, thyromegaly. CHEST: Decreased air entry in both silva. Scattered expiratory wheezes. CARDIOVASCULAR: First and second heart sounds heard. No gallops, murmurs or rubs. Rhythm is regular. ABDOMEN: Protuberant and soft with tenderness most noticeable in the right upper quadrant and right lower quadrant. No peritoneal signs noted. Bowel sounds are hypoactive. Due to the patient's degree of pain, I would not do a thorough examination of her liver. EXTREMITIES: The patient has slight diminished pulse volumes distally in all extremities. No edema, clubbing or cyanosis. NEUROLOGIC: No gross focal deficits appreciated. No asterixis or myoclonus. SKIN: Intact with no breakdown, lesions or erythema. Surprisingly skin turgor is good. MUSCULOSKELETAL: Grossly normal. ASSESSMENT: 1. Intractable abdominal pain from underlying metastatic disease. 2. Encephalopathy, probably toxic versus metabolic. This could probably be related to patient's medications. 3. Type 2 diabetes generally controlled. 4. Hypotension, probably secondary to decreased intravascular volume and hypotensive-inducing medications. 5. Hypokalemia, probably secondary to poor oral intake and kidney losses. 6. Metastatic liver disease, primary yet to be determined. PLAN: The patient is going to be admitted for hydration and electrolyte replacement. Will treat the patient symptomatically in the interim. Will consult Oncology to go over outstanding pathology report from biopsy done 4 to 5 days ago. I do believe that the patient's presentation of hypotension, hypopnea and hypoxia probably related to an inordinate use of her medications. i.e., Ativan and opioids. The patient will need to be monitored closely in stepdown unit where urgent intervention can be administered if the patient were to have a recurrence of the aforementioned findings. Check other electrolytes, i.e., magnesium and phosphorus, due to patient's poor oral intake. O2 support will be instituted. Other supportive measures will be also administered. The patient might benefit from new receptor antagonist, like Movantik. To address any urinary or GI effects of opioids. cc: MD Melanie Arreola MD Dr. Shah
[2018-03-20 07:25] LABS: BASO# 0.01 X1000 (0.0-0.2); BASO% 0.2 % (0.0-0.8); EOS# 0.02 X1000 (0.0-0.7); EOS% 0.3 % (0.0-10.0); HEMATOCRIT 32.6 % (37.0-47.0); HEMOGLOBIN 9.9 g/dL (12.0-16.0); LYMPH# 0.94 X1000 (1.2-3.4); LYMPH% 14.5 % (20.5-51.1); MCHC 30.4 g/dL (33-37); MCV 78.9 FL (81-99); MONO# 0.56 X1000 (0.11-0.59); MONO% 8.6 % (1.7-9.3); MPV 10.2 FL (7.4-10.4); NEUT# 4.96 X1000 (1.4-6.5); NEUT% 76.4 % (42.2-75.2); PLT 130 X1000 (130-400); RBC 4.13 XMIL (4.2-5.4); RDW 19.2 % (11.5-14.5); WBC 6.49 X1000 (4.8-10.8)
[2018-03-20 07:57] LABS: AGAP 9; BUN 2 mg/dL (8-22); CALCIUM 7.8 mg/dL (8.8-10.2); CHLORIDE 105 mmol/L (98-107); COSMO 283; CREATININE 0.5 mg/dL (0.5-0.9); ESTIMATED GFR > 60; GLUCOSE 135 mg/dL (70-104); POTASSIUM 3.4 mmol/L (3.5-5.1); SODIUM 143 mmol/L (136-145); TCO2 29 mmol/L (25-35)
--- NOTE | 2018-03-20 09:32 | EKG Report ---
Test Performed on : 03/19/2018 6:42:47 PM Test Reason : ams Blood Pressure : / mmHG Vent. Rate : 108 BPM Atrial Rate : 108 BPM P-R Int : 134 ms QRS Dur : 066 ms QT Int : 366 ms P-R-T Axes : 062 -12 038 degrees QTc Int : 490 ms Sinus tachycardia. Septal infarct , age undetermined Abnormal ECG No previous ECGs available Unconfirmed Result
[2018-03-20] MEDS ORDERED: MAGNESIUM SULFATE 2 GM/S.W.I. 2 GM/50 ML IVPB IV ONE (09:33)
--- NOTE | 2018-03-20 10:01 | PROGRESS NOTE ---
DATE: 03/20/2018 SUBJECTIVE: Ms. Mosqueda is a patient of Melanie Jackson MD, I think in [place]. A 62-year-old female with metastatic disease, unknown primary. She has a history of cirrhosis, diabetes, hypertension, COPD and migraines. She was brought in by the family. She had just been in the hospital. Apparently had some biopsies awaiting on results. They found her difficult to arouse. O2 saturations were in the 80s. They called EMS and checked her. Had a hard time arousing her, sternal rub. Noted blood pressures in 80s and 90s. Confirmed she was hypoxic and brought her in on some O2 nasal cannula. The patient complained of diffuse severe abdominal pain, but now it is more oriented on the right side. She had some stabbing pain in the right periumbilical area with no radiation of pain, but seemed to wax and wane. Asked me please not to push on her abdomen very hard. At home she is on Seroquel, simvastatin, Maxalt, baclofen, Symbicort, Cymbalta, gabapentin 600 mg t.i.d., Imdur 30 mg a day, lisinopril 10 mg a day, Lorazepam 4 times a day 1 mg, metformin, VESIcare, oxycodone 1 to 2 tablets q. 4 hours. OBJECTIVE: General: On exam today, she is awake and alert. Abdominal pain has diminished, but this is more localized in the right side. Vital Signs: She remains afebrile. Pulse 105, respirations 17, blood pressure 123/69. Eyes: Pupils are equal and round. Lungs: Clear anterolateral. Cardiovascular exam: Regular rhythm and rate without murmur or S3. : Urine output is 3600 mL. LABS AND X-RAYS: White count 6490, hematocrit 32, platelet count 130,000. Sodium 143, potassium 3.4 (it was 2.5 on presentation), chloride 105. BUN 2, creatinine 0.5. Magnesium was 1.2. Pro time 17.6. Urinalysis unremarkable. Blood gases on arrival: The pH was 7.42, pCO2 39, PO2 is 90, O2 saturation was 99%. Head CT: No visible acute intracranial abnormality. No indication of metastatic disease. Chest x-ray: Mild atelectasis left base. No other evidence of acute disease. ASSESSMENT AND PLAN: 1. Intractable abdominal pain, suspect underlying metastatic disease, unknown primary. Apparently she was here and had some biopsies that are pending. I think Dr. Wood is following. 2. Encephalopathy probably multifactorial, including toxic and metabolic pain medicine in the face of hypoxemia. 3. Diabetes mellitus type 2, generally controlled. 4. Hypotension. Gave her some fluids. 5. Hypokalemia. Will supplement. 6. Hypomagnesemia. We need to give her some magnesium as well. 7. Metastatic liver disease, unknown primary. We will give her some magnesium and some potassium today. Her fluids are going at normal saline 125 mL an hour, Protonix 40 mg intravenous daily. We will consult Dr. Wood and get Gastroenterology involved as well. cc: Urbano Ramsey MD
--- NOTE | 2018-03-20 15:05 | HEMO/ONC CONSULTATION ---
DATE: 03/20/2018 CONSULTATION REQUESTED BY: [facility]. REASON FOR CONSULTATION: Patient known, liver mass. HISTORY OF PRESENT ILLNESS: The patient was actually recently in the hospital and then discharged actually on 03/17/2018. We did do a consultation note at that time so please see that consultation note for the patient's past medical history, social history, and past surgical history. The patient has now come back to the hospital after being found unconscious at home. She has been having abdominal pain and was taking pain medications. The patient was found to have colitis at her last hospitalization. She was brought here via ambulance. Her altered mental status has improved since being in the E.R. While the patient was here last time, a liver biopsy was completed but the final pathology is still pending. REVIEW OF SYSTEMS: A 12 point review of systems has been completed and is negative except for as expressed in the HPI. PHYSICAL EXAMINATION: Vital Signs: Temperature 99.1, heart rate 102, respirations 16, blood pressure 130/68, and O2 saturation 95% on nasal cannula at 3L. General: This is a female who is in the E.R. with family members at the bedside. She is in no apparent acute distress. Head: Normocephalic, atraumatic. Eyes: Pupils equal, round, and reactive. Ears, nose, throat, neck, and mouth: Oral mucosa is normal. Gross auditory acuity is intact. Cardiovascular: Tachycardia is noted with a regular rhythm. Respiratory: Chest: Clear with normal respiratory effort. No rhonchi, rales, or wheezing noted. Gastrointestinal: The patient is exquisitely tender throughout. Positive bowel sounds noted. Musculoskeletal : No bony abnormalities. Extremities: Trace edema. Neurologic: Patient is alert and oriented with no focal motor deficits. LABS AND STUDIES: White blood cells are 6.49, hemoglobin 9.9, hematocrit 32.6, and platelet count 130. Sodium 143, potassium 3.4, chloride 105, CO2 29, BUN 2, creatinine 0.5, glucose 135, and magnesium 1.2. Head CT is negative. ASSESSMENT AND PLAN: 1. Liver mass. This was previously biopsied. Dr. Wood has talked with Pathology and preliminary appears to be hepatocellular but the final pathology is still out. We are waiting to discuss the pathology findings and treatment with the patient once the final pathology has returned. 2. Colitis. Recommend Gastrointestinal consult and continue with antibiotics and pain control. 3. Abdominal pain secondary to #2. Continue with adequate pain control. 4. Altered mental status. This seems to have resolved. It may have been secondary to pain medications. Continue to monitor closely throughout the hospital stay. 5. Electrolyte imbalances. We will replete per primary team. We want to thank you for consulting us on Ms. Mosqueda. While she is here at [facility] we will continue to follow along and adjust her treatment per her hospital course. Dictated by LETITIA Bedolla for Mari Wood MD cc: Mari Wood MD I have seen and examined the patient and the above note reflects my history, physical exam and assessment and plan. Mari BOATENG
[2018-03-20 15:28] VITALS: BP 136/61
--- NOTE | 2018-03-20 15:57 | PROVIDER DOCUMENTATION ---
This chart was entered by Tran Brown Scribe, acting as scribe for Tiesha Sheehan MD. HPI-Neurological Disorder - General Chief Complaint: General Adult Stated Complaint: LOW O2 SAT./HYPOGYCEMIA Time Seen by Provider: 03/19/18 18:37 Source: patient Allergies/Adverse Reactions: Patient Allergies Allergy/AdvReac Type Severity Reaction Status Date / Time amitriptyline Allergy Intermediate FATIGUE Verified 03/19/18 21:49 Sulfa (Sulfonamide Allergy FATIGUE Verified 03/19/18 21:49 Antibiotics) Home Medications: Home Medication List Medication Instructions Recorded Confirmed Last Taken Type Baclofen 10 mg PO TID CC 03/15/18 03/19/18 03/19/18 08:30 History Budesonide/Formoterol Inhaler 2 puff INH BID 03/15/18 03/19/18 03/19/18 08:30 History [Symbicort 160/4.5 Microgm Inhaler] Duloxetine [Cymbalta] 60 mg PO BID 03/15/18 03/19/18 03/19/18 08:30 History Furosemide [Lasix] 20 mg PO DAILY 03/15/18 03/19/18 Unknown History Gabapentin 600 mg PO TID 03/15/18 03/19/18 03/19/18 08:30 History Glimepiride 4 mg PO BID 03/15/18 03/19/18 03/19/18 08:30 History Isosorbide Mononitrate E.r. [Imdur] 30 mg PO DAILY 03/15/18 03/19/18 03/19/18 08 :30 History Lisinopril 10 mg PO DAILY 03/15/18 03/19/18 03/19/18 08:30 History Lorazepam 1 mg PO 4XDAY 03/15/18 03/19/18 03/19/18 08:30 History Metformin [Glucophage] 1,000 mg PO BID 03/15/18 03/19/18 03/19/18 08:30 History Metoclopramide [Reglan] 10 mg PO TID AC 03/15/18 03/19/18 03/19/18 08:30 History Montelukast Sodium [Singulair] 10 mg PO QPM 03/15/18 03/19/18 03/19/18 08:30 History Potassium Chloride E.r. [Klor-Con] 10 meq PO DAILY 03/15/18 03/19/18 Unknown History Quetiapine Fumarate 200 mg PO QHS 03/15/18 03/19/18 03/18/18 20:30 History Rizatriptan Benzoate [Maxalt] 10 mg PO Q8HR PRN 03/15/18 03/19/18 Unknown History Simvastatin 40 mg PO QHS 03/15/18 03/19/18 03/18/18 20:30 History Solifenacin Succinate [Vesicare] 10 mg PO DAILY 03/15/18 03/19/18 03/19/18 08: 30 History Sucralfate 1 gm PO Q6H PRN 03/15/18 03/19/18 Unknown History Levofloxacin [Levaquin] 750 mg PO DAILY #10 tab 03/17/18 03/19/18 03/19/18 08: 30 Rx Oxycodone HCl/Acetaminophen 1 - 2 tab PO Q4H PRN PRN #40 tab 03/17/18 03/19/18 03/19/18 08:30 Rx [Percocet 10-325 mg Tablet] - History of Present Illness-Neuro Nature of Presenting Problem: Patient is a 62 year old female who presents to the ED via EMS with AMS. EMS states the call came in as unresponsive. Patient's daughter states patient's O2 sat has been dropping into the 70's. Patient states history of liver cancer and COPD. Patient also states shortness of breath, fatigue, cough, loss of appetite , abdominal pain, weakness, nausea and vomiting. Headache Location: reports: other (no headache reported) Severity: reports: mild Onset/Duration: reports: other (2 weeks) Timing: reports: improving Context: reports: found unresponsive by family Character of Altered Mental Status: reports: unresponsive Any recent trauma/injury?: reports: none New weakness or altered sensation location:: reports: none Cognitive Baseline: alert, oriented x3 Gait Baseline: walks without assistance Associated Symptoms: reports: fatigue, weakness Similar Symptoms Previously?: No Recently seen or treated by another doctor?: No Review of Systems - Adult - REVIEW OF SYSTEMS - ADULT Constitutional: reports: masha. denies: chills, fever Eyes: reports: no symptoms reported Ears, Nose, Mouth & Throat: reports: no symptoms reported Cardiovascular: reports: no symptoms reported Respiratory: reports: cough, shortness of breath. denies: wheezing Gastrointestinal: reports: abdominal pain, nausea, poor appetite, vomiting. denies: diarrhea Genitourinary: reports: no symptoms reported Musculoskeletal: reports: muscle weakness. denies: back pain, neck pain Integumentary: reports: no symptoms reported Neurological: reports: other (AMS - unresponsive). denies: dizziness/vertigo, headache/migraines, numbness, seizure Psychiatric: reports: no symptoms reported Endocrine: reports: no symptoms reported Hematologic/Lymphatic: reports: no symptoms reported Allergic/Immunologic: reports: no symptoms reported All Other Systems: Reviewed and Negative Past History - Adult - PAST MEDICAL HISTORY-ADULT Review of Records: reports: Nursing Assessment Review, Medications Reviewed, Social history reviewed & non-contributory. Major Childhood Illnesses: reports: denies history Cardiovascular: reports: HTN Respiratory: reports: asthma, COPD Gastrointestinal: reports: denies history Obstetrical/Gynecological: reports: denies history Genitourinary: reports: denies history Musculoskeletal: reports: denies history Neurological: reports: denies history Endocrine/Immune: reports: Diabetes Other Conditions: reports: denies history - PRIOR SURGERIES/PROCEDURES Surgical/Procedure History: reports: reviewed, not pertinent - IMMUNIZATION STATUS Childhood Immunizations: See Nurse Assessment Flu Vaccine: See Nurse Assessment - FAMILY HISTORY Family History: reviewed, not pertinent - SOCIAL HISTORY Smoking: cigarettes, greater than 1 pack/day Provider spent 3-5 mins advising pt. on dangers of tobacco.: Discussed manners to quit use, and f/u contacts for add'l counseling. 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 hearing, normal speech Motor/Sensory: no motor deficit, no sensory deficit, no pronator drift Neurologic: grossly normal Integumentary: pallor Psych/Mental Status: other (lethargic) Progress - PLAN OF CARE/RESULTS Progress/Plan/Lab Results: Laboratory Results - last 24 hr 03/19/18 03/19/18 03/19/18 18:37 18:45 18:50 WBC 9.14 RBC 4.33 Hgb 10.5 L Hct 34.4 L MCV 79.4 L MCH 24.2 L MCHC 30.5 L RDW Std Deviation 19.3 H Plt Count 130 MPV 9.6 Immature Gran % (Auto) 0.2 Neut % (Auto) 76.3 H Lymph % (Auto) 13.5 L Henry % (Auto) 9.5 H Eos % (Auto) 0.3 Baso % (Auto) 0.2 Immature Gran # (Auto) 0.02 Neut # (Auto) 6.97 H Lymph # (Auto) 1.23 Henry # (Auto) 0.87 H Eos # (Auto) 0.03 Baso # (Auto) 0.02 PT INR PTT (Actin FS) Specimen Type ARTERIAL Sample Site R RADIAL pH 7.42 pCO2 39 pO2 90 HCO3 25.4 Base Excess 0.8 Oxyhemoglobin 89.4 L* ABG O2 Sat (Calculated) 12.6 L ABG O2 Saturation 99.4 ABG Carboxyhemoglobin 9.20 H* ABG Methemoglobin 0.9 Urbano Test YES A-a O2 Difference 118.0 Total Hemoglobin 9.9 L Lactate 4.40 H Liter Flow 4.0 Blood Gas Modality CANNULA FiO2 % 36.0 Sodium Potassium Chloride Carbon Dioxide Anion Gap BUN Creatinine Estimated GFR/1.73 m2 BUN/Creatinine Ratio Glucose POC Glucose 162 H Calculated Osmolality Calcium Phosphorus Total Bilirubin AST ALT Alkaline Phosphatase Creatine Kinase Troponin T Total Protein Albumin Globulin Albumin/Globulin Ratio Urine Source Urine Color Urine Turbidity Urine pH Ur Specific [place] Urine Protein Ur Glucose (Stick) Ur Ketones (Stick) Urine Blood Urine Nitrite Urine Bilirubin Urobilinogen Dipstick Urine Leukocytes Urine WBC (Auto) Urine RBC (Auto) U Epithel Cells (Auto) Urine Bacteria (Auto) 03/19/18 03/19/18 03/19/18 18:50 18:50 18:50 WBC RBC Hgb Hct MCV MCH MCHC RDW Std Deviation Plt Count MPV Immature Gran % (Auto) Neut % (Auto) Lymph % (Auto) Henry % (Auto) Eos % (Auto) Baso % (Auto) Immature Gran # (Auto) Neut # (Auto) Lymph # (Auto) Henry # (Auto) Eos # (Auto) Baso # (Auto) PT 17.6 H INR 1.33 PTT (Actin FS) 35.0 Specimen Type Sample Site pH pCO2 pO2 HCO3 Base Excess Oxyhemoglobin ABG O2 Sat (Calculated) ABG O2 Saturation ABG Carboxyhemoglobin ABG Methemoglobin Urbano Test A-a O2 Difference Total Hemoglobin Lactate Liter Flow Blood Gas Modality FiO2 % Sodium 139 Potassium 2.5 L* Chloride 99 Carbon Dioxide 25 Anion Gap 15 BUN 3 L Creatinine 0.6 Estimated GFR/1.73 m2 > 60 BUN/Creatinine Ratio 5 Glucose 162 H POC Glucose Calculated Osmolality 278 Calcium 8.1 L Phosphorus Total Bilirubin 0.57 AST 31 H ALT 10 Alkaline Phosphatase 95 Creatine Kinase 50 Troponin T Total Protein 6.1 L Albumin 2.7 L Globulin 3.4 Albumin/Globulin Ratio 0.8 Urine Source Urine Color Urine Turbidity Urine pH Ur Specific [place] Urine Protein Ur Glucose (Stick) Ur Ketones (Stick) Urine Blood Urine Nitrite Urine Bilirubin Urobilinogen Dipstick Urine Leukocytes Urine WBC (Auto) Urine RBC (Auto) U Epithel Cells (Auto) Urine Bacteria (Auto) 03/19/18 03/19/18 03/19/18 18:50 18:50 21:00 WBC RBC Hgb Hct MCV MCH MCHC RDW Std Deviation Plt Count MPV Immature Gran % (Auto) Neut % (Auto) Lymph % (Auto) Henry % (Auto) Eos % (Auto) Baso % (Auto) Immature Gran # (Auto) Neut # (Auto) Lymph # (Auto) Henry # (Auto) Eos # (Auto) Baso # (Auto) PT INR PTT (Actin FS) Specimen Type Sample Site pH pCO2 pO2 HCO3 Base Excess Oxyhemoglobin ABG O2 Sat (Calculated) ABG O2 Saturation ABG Carboxyhemoglobin ABG Methemoglobin [place] Test A-a O2 Difference Total Hemoglobin Lactate Liter Flow Blood Gas Modality FiO2 % Sodium Potassium Chloride Carbon Dioxide Anion Gap BUN Creatinine Estimated GFR/1.73 m2 BUN/Creatinine Ratio Glucose POC Glucose Calculated Osmolality Calcium Phosphorus 2.3 L Total Bilirubin AST ALT Alkaline Phosphatase Creatine Kinase Troponin T < 0.010 Total Protein Albumin Globulin Albumin/Globulin Ratio Urine Source CATH Urine Color ORANGE Urine Turbidity CLEAR Urine pH 6.0 Ur Specific [place] 1.007 Urine Protein TRACE A Ur Glucose (Stick) NEGATIVE Ur Ketones (Stick) NEGATIVE Urine Blood NEGATIVE Urine Nitrite NEGATIVE Urine Bilirubin NEGATIVE Urobilinogen Dipstick NORMAL Urine Leukocytes NEGATIVE Urine WBC (Auto) <10 Urine RBC (Auto) <10 U Epithel Cells (Auto) <10 Urine Bacteria (Auto) NEGATIVE Orders Category Date Time Status Admit - [facility] Routine AdmDCTranf 03/20/18 01:08 Active Activity - Up with Assistance ORDERED Care 03/20/18 01:08 Active Cardiac Monitoring DIRECTED Care 03/19/18 19:18 Completed Finger Stick Blood Sugar (ED) DIRECTED Care 03/19/18 19:18 Completed Intake and Output-Strict ORDERED Care 03/20/18 01:08 Active Oxygen Therapy- ED Nursing DIRECTED Care 03/19/18 19:18 Completed Saline Loc NOW Care 03/19/18 19:18 Completed Vital Signs Order Q 8-HR ASSESS Care 03/20/18 01:08 Active Z-Document. for Tele Applied ORDERED Care 03/20/18 01:08 Active Clear Liquid Diet Diet 03/20/18 01:[address] HEAD W/WO CONTRAST [CT] Stat Exams 03/19/18 20:41 Completed cxr [CHEST-2 VIEWS] [RAD] Stat Exams 03/19/18 19:17 Completed ABG [RESP] Routine Lab 03/19/18 18:37 Completed BASIC METABOLIC PANEL [CHEM] Routine Lab 03/20/18 07:11 Completed CBC WITH DIFF [HEME] Routine Lab 03/20/18 07:11 Completed CBC WITH DIFF [HEME] Stat Lab 03/19/18 18:50 Completed CK PROFILE [SP CHEM] Stat Lab 03/19/18 18:50 Completed COMPREHENSIVE METABOLIC PANEL [CHEM] Stat Lab 03/19/18 18:50 Completed MAGNESIUM [CHEM] Stat Lab 03/20/18 01:40 Completed PHOSPHORUS [CHEM] Stat Lab 03/19/18 18:50 Completed PROTIME WITH INR [COAG] Stat Lab 03/19/18 18:50 Completed PTT [COAG] Stat Lab 03/19/18 18:50 Completed TROPONIN T Stat Lab 03/19/18 18:50 Completed URINALYSIS [URINALYSIS] Stat Lab 03/19/18 21:00 Completed 0.9% Sodium Chloride Inj [Ns] 1,000 ml Med 03/20/18 02:00 Active Potassium Chloride 10 meq IV 125 mls/hr 0.9% Sodium Chloride Inj [Ns] 1,000 ml Med 03/19/18 21:45 Discontinued .ROUTE As Directed Acetaminophen [Tylenol] Med 03/20/18 01:08 Active 650 mg PO Q6H PRN PRN Enoxaparin [Lovenox] Med 03/20/18 06:00 Active 40 mg SUBQ Q24H Fentanyl Med 03/19/18 20:39 Discontinued 50 microgm IV NOW ONE Fentanyl Med 03/20/18 01:08 Active 50 microgm IV Q3H PRN PRN Lorazepam [Ativan] Med 03/19/18 20:39 Discontinued 0.5 mg IV NOW ONE Naloxegol Oxalate [Movantik] Med 03/20/18 01:08 Discontinued 25 mg PO ONCE ONE Ondansetron [Zofran] Med 03/20/18 01:08 Active 4 mg IV Q4H PRN PRN Pantoprazole [Protonix] Med 03/20/18 01:08 Active 40 mg IV Q24H Potassium Chloride 20 Meq/Swi Med 03/20/18 01:08 Discontinued 20 meq in 100 ml IV Q2H Prochlorperazine [Compazine] Med 03/20/18 01:08 Active 10 mg IV Q6H PRN PRN Sodium Chloride 0.9% Med 03/20/18 01:08 Active 10 ml INJ ORDERED Telemetry [OM.EQ] Routine Oth 03/20/18 01:08 Active EKG [EKG] Stat Ther 03/19/18 19:18 Draft Transfer/Admit Order [TRANSFER] Routine Transfer 03/19/18 22:33 Completed Result Diagrams: 03/20/18 07:11 03/20/18 07:11 - EKG 1 Time of EKG reading by physician:: 18:42 EKG Read and Signed by:: Tiesha Sheehan EKG Interpretation (*Must complete 3 of following elements*): Abnormal Rate: 108 Rhythm: sinus tachycardia Comments: septal infarct, age undetermined - XRAY 1 XRAY Study: Chest Impression: See EMR Report (EXAM: CHEST-2 VIEWS - 03/19/2018 HISTORY: ams TECHNIQUE: Chest two views COMPARISON: None. FINDINGS: Heart size is normal. There is mild tortuosity of the thoracic aorta. There are scattered small granulomas from old granulomatous disease. There is mild subsegmental atelectasis at the left base. There is no consolidation, vascular congestion, pleural effusion, or pneumothorax identified. IMPRESSION: Mild atelectasis at left base. No other evidence of acute disease. Electronically signed by [employer] 03/19/2018 7:59 PM 03/19/181958 Interpreting Physician: Tonny Archuleta MD Dictated Date/Time: 03/19/181957 cc: Tiesha Sheehan MD; Melanie Jackson) - CT/MRI 1 CT Study: Head Impression: See EMR Report ( EXAM: CT HEAD W/WO CONTRAST - 03/19/2018 HISTORY: ams/mets - Dr Mendoza TECHNIQUE: CT head without and with intravenous contrast COMPARISON: None. FINDINGS: There is no evidence of intracranial hemorrhage, mass effect, midline shift, or hydrocephalus. There is no evidence of infarct, although acute infarcts may not be immediately visible. There is no abnormal enhancement identified. There are small basal ganglia calcifications compatible with chronic process noted. There is a mucous retention cyst noted at the inferior right maxillary sinus. IMPRESSION: No visible acute intracranial abnormality. No indication of metastatic disease to the brain. This exam was performed using automated exposure control, adjustment of mA or kV according to patient size, and/or use of iterative reconstruction technique. Electronically signed by [employer] 03/19/2018 9:44 PM [id number] Interpreting Physician: Tonny Archuleta MD Dictated Date/Time: 06/02 cc: Tiesha Sheehan MD; Melanie Jackson) - CONSULTS/PCP/HOSPITALIST Notification #1 *Consult/PCP/Hospitalist*: Dr. Mendoza Time Discussed: 20:22 Reason/Comments: Dr. Sheehan consulted with Dr. Mendoza about patient. Consult Disposition: Will see in ED, other (Dr. Mendoza states call back when all labs result.) Departure - Departure Date of Disposition Decision: 03/19/17 Time of Disposition Decision: 20:22 DIAGNOSIS: Oxygen desaturation, History of lung cancer, Hypotension Disposition: ADMITTED INPATIENT 09 Certified Medical Emergency: Emergent Condition: Stable - Critical Care Note This patient required my direct & personal management of CC.: Yes Total Time (mins): 32 Critical Care Statement: This patient required my direct personal management to treat or rule out processes, the absence of which, could potentiallly result in sudden, clinically significant life or limb threatening deterioration. Attestation - Physician/ ELKE Attestation Patient care was provided by Advanced Practice Provider:: No The physician spent face to face time with patient:: Yes Advanced Practice Provider documentation review:: Supervising physician onsite and consulted in the evaluation and care of this patient. The physician did have a face to face encounter with the patient. This chart was documented by the indicated scribe, (rTan Brown Scribe) and accurately reflects the services I performed and decisions made by me, Tiesha Sheehan MD, as attested by the provider's signature.
[2018-03-20] MEDS ORDERED: MAG-OX PO SCH (21:00)
--- NOTE | 2018-03-22 21:09 | CONSULTATION ---
DATE OF CONSULTATION: 03/21/2018 REASON FOR CONSULTATION: Abdominal pain diffuse, has some cramps. She had constipation with last bowel movement a week or more, she has not been taking anything other than ice chips she is throwing up. REVIEW OF SYSTEMS: Crampy abdominal pain as above others negative. ALLERGIES: To sulfa and Elavil. MEDICATIONS: Are reviewed, she is on Reglan an Carafate along with multiple other medicine. SOCIAL: 40 packs per year history. FAMILY HISTORY: No colon cancer. PAST SURGICAL HISTORY: Hernia repair, hysterectomy, bladder tack, partial colon resection, cholecystectomy. PHYSICAL EXAMINATION: Middle age lady in distress.HEENT: Conjunctival pallor. Neck: Supple. Blood pressure 100/60, heart rate 100, respirations 17, temperature 98.6 degrees. Lungs: Decreased air entry. Heart: Normal first and second heart sounds. Abdomen: Distended and soft, some tenderness in the right upper and right lower quadrant, bowel sounds present. Extremities: Diminished pulses. IMPRESSION PLAN: 1. Intractable abdominal pain with underlying metastatic disease. 2. Encephalopathy. 3. Diabetes mellitus . 4. Hypertension. 5. Hypokalemia . 6. Metastatic liver disease. Continue pain medicine and supportive care. We will get the liver biopsy results which was done few days ago. There is no evidence of any bleeding from the biopsy. Gastrointestinal prophylaxis and bowel regimen, will put some MiraLAX every day. cc: Cydney Mccall MD
== END 2018-03-20 16:11 | disposition left against medical advice (07) | DRG 92 ==
LOC: SUPCPDRO → ED 18:26 → SUATTDRO 03-20 00:10 → EDIPHOLD 03-20 00:10 → 4N 03-20 14:08 → EDIPHOLD 03-20 15:29 → 4N 03-20 15:38 → EDIPHOLD 03-20 15:41
PROVIDERS: ATTEND Emergency Medicine
CPT/HCPCS: 36415; 51702; 70470; 71020; 71046; 80048; 80053; 81001; 82550; 82805; 82948; 83735; 84100; 84484; 85025; 85610; 85730; 93005; 96365; 96366; 96367; 96372; 96375; 99285; A9270; C9113; J1650; J2060; J2405; J3010; J3475; J3480; J7030; Q9967; S0164; XXXXX

== ENCOUNTER 2018-06-30 13:14 | Inpatient (IN) ==
[2018-06-30 14:01] LABS: AGAP 16; ALB/GLOB RATIO 0.6; ALBUMIN 2.7 g/dL (3.5-5.0); ALKALINE PHOSPHATASE 199 U/L (32-104); AMYLASE 28 U/L (20-200); BUN 9 mg/dL (8-22); CALCIUM 8.3 mg/dL (8.8-10.2); CHLORIDE 91 mmol/L (98-107); COSMO 275; CREATININE 0.7 mg/dL (0.5-0.9); ESTIMATED GFR > 60; GLUCOSE 142 mg/dL (70-104); GOT 65 U/L (10-30); GPT 21 U/L (10-36); LIPASE 54 U/L (13-60); POTASSIUM 2.7 mmol/L (3.5-5.1); SODIUM 137 mmol/L (136-145); TCO2 30 mmol/L (25-35); TOTAL BILIRUBIN 0.64 mg/dL (0.20-1.00); TOTAL PROTEIN 7.6 g/dL (6.3-8.3)
[2018-06-30 14:11] LABS: BASO# 0.06 X1000 (0.0-0.2); BASO% 0.5 % (0.0-0.8); EOS# 0.13 X1000 (0.0-0.7); EOS% 1.2 % (0.0-10.0); HEMATOCRIT 38.9 % (37.0-47.0); HEMOGLOBIN 12.8 g/dL (12.0-16.0); IMM GRAN# 0.02 X1000 (0.0-0.04); IMM GRAN% 0.2 % (0.0-0.5); LYMPH# 1.78 X1000 (1.2-3.4); LYMPH% 16.1 % (20.5-51.1); MCH 26.9 PG (27-31); MCHC 32.9 g/dL (33-37); MCV 81.9 FL (81-99); MONO# 0.99 X1000 (0.11-0.59); MONO% 8.9 % (1.7-9.3); MPV 10.1 FL (7.4-10.4); NEUT% 73.1 % (42.2-75.2); PLT 196 X1000 (130-400); RBC 4.75 XMIL (4.2-5.4); RDW 20.7 % (11.5-14.5); WBC 11.08 X1000 (4.8-10.8)
--- NOTE | 2018-06-30 14:14 | EKG Report ---
Test Performed on : 06/30/2018 1:43:26 PM Test Reason : ABD PAIN Blood Pressure : / mmHG Vent. Rate : 111 BPM Atrial Rate : 111 BPM P-R Int : 128 ms QRS Dur : 076 ms QT Int : 380 ms P-R-T Axes : 069 007 070 degrees QTc Int : 516 ms Sinus tachycardia. with premature atrial complexes. Biatrial enlargement Abnormal ECG When compared with ECG of 19-MAR-2018 18:42, premature atrial complexes. are now present Criteria for Septal infarct are no longer present Unconfirmed Result
[2018-06-30] MEDS ORDERED: VANCOMYCIN 1 GM/NS 1 GM/250 ML IVPB IV ONE ×2 (14:47→18:00)
[2018-06-30] MEDS ORDERED: ZOSYN 3.375 GM in NS 50 ML IV ONE (14:47)
[2018-06-30] MEDS ORDERED: FLAGYL 500 MG/NS 500 MG/100 ML IVPB IV ONE (14:47)
[2018-06-30] MEDS ORDERED: NS 3,000 ML IV ONE (14:48)
[2018-06-30] MEDS ORDERED: ZOFRAN IV ONE (14:53)
[2018-06-30] MEDS ORDERED: MORPHINE IV ONE ×2 (14:53→15:31)
[2018-06-30] MEDS ORDERED: KLOR-CON PO ONE ×2 (15:26→23:41)
[2018-06-30 15:27] LABS: BASO# 0.06 X1000 (0.0-0.2); BASO% 0.5 % (0.0-0.8); EOS# 0.09 X1000 (0.0-0.7); EOS% 0.8 % (0.0-10.0); HEMATOCRIT 39.7 % (37.0-47.0); HEMOGLOBIN 12.8 g/dL (12.0-16.0); IMM GRAN# 0.03 X1000 (0.0-0.04); IMM GRAN% 0.3 % (0.0-0.5); LYMPH# 2.06 X1000 (1.2-3.4); LYMPH% 17.9 % (20.5-51.1); MCH 26.3 PG (27-31); MCHC 32.2 g/dL (33-37); MCV 81.7 FL (81-99); MONO% 9.6 % (1.7-9.3); MPV 10.7 FL (7.4-10.4); NEUT# 8.15 X1000 (1.4-6.5); NEUT% 70.9 % (42.2-75.2); PLT 184 X1000 (130-400); RBC 4.86 XMIL (4.2-5.4); RDW 20.3 % (11.5-14.5); WBC 11.49 X1000 (4.8-10.8)
[2018-06-30 15:36] LABS: INR 1.11; PROTIME 15.1 Seconds (11.0-16.0); PTT 31.2 Seconds (22.3-41.8)
[2018-06-30 15:57] LABS: AGAP 17; ALB/GLOB RATIO 0.6; ALBUMIN 2.7 g/dL (3.5-5.0); ALKALINE PHOSPHATASE 199 U/L (32-104); BUN 9 mg/dL (8-22); CALCIUM 7.9 mg/dL (8.8-10.2); CHLORIDE 91 mmol/L (98-107); CK PROFILE 61 U/L (24-173); COSMO 276; CREATININE 0.6 mg/dL (0.5-0.9); ESTIMATED GFR > 60; GLUCOSE 121 mg/dL (70-104); GOT 65 U/L (10-30); GPT 21 U/L (10-36); POTASSIUM 2.8 mmol/L (3.5-5.1); SODIUM 138 mmol/L (136-145); TCO2 30 mmol/L (25-35); TOTAL BILIRUBIN 0.66 mg/dL (0.20-1.00); TOTAL PROTEIN 7.1 g/dL (6.3-8.3)
--- NOTE | 2018-06-30 16:28 | Diag Imaging Result Doc PS360 ---
EXAM: CT ABD/PELVIS W/IV CONT ONLY 06/30/2018 HISTORY: abdominal pain and swelling s/p paracentesis TECHNIQUE: This exam was performed using automated exposure control, adjustment of mA or kV according to patient size, and/or use of iterative reconstruction technique. COMMENT: The current study is compared with 03/14/2018. There are some fibrotic appearing opacities in the lung bases similar to the previous study. There are also multiple calcified granulomata. There are numerous small lucencies throughout the liver. The liver contours are lobulated. The spleen is slightly enlarged measuring over 13.3 cm in AP dimension. This has improved since the previous study at which time it measured 14.2 cm. The overall density of the liver has decreased and the number of lucent lesions are more numerous than on the previous examination. There is also considerable subcutaneous edema which is largely limited to the left side of the abdomen and pelvis. There is a small amount of ascites which is primarily located adjacent to the liver. This is increased slightly in volume since the previous study. There is extensive atherosclerotic calcification in the abdominal aorta. There are some calcifications in the proximal superior mesenteric artery and in the ostia of both renal arteries. There is infrarenal abdominal aortic aneurysm measuring 2.3 cm in AP dimension. There is stool in the colon. The small bowel is not distended. Pelvis: There is some stool and gas in the rectum. The urinary bladder is not distended. There is a hip arthroplasty on the left. There is no evidence of acute bony abnormality. IMPRESSION: Worsened cirrhotic changes in the liver including regenerating nodules. Moderate ascites and worsened anasarca. Stable AAA. Electronically signed by Devonte Newman 06/30/2018 4:26 PM
[2018-06-30] MEDS ORDERED: MAGNESIUM SULFATE 2 GM/S.W.I. 2 GM/50 ML IVPB IV ONE ×2 (16:59→23:42)
[2018-06-30 17:35] LABS: URINE SOURCE CLEAN CATCH
[2018-06-30 17:39] LABS: BILIRUBIN URINE NEGATIVE (NEGATIVE); BLOOD URINE NEGATIVE (NEGATIVE); COLOR YELLOW; GLUCOSE URINE NEGATIVE (NEGATIVE); KETONE URINE NEGATIVE (NEGATIVE); LEUKOCYTES URINE NEGATIVE (NEGATIVE); NITRITE URINE NEGATIVE (NEGATIVE); PH URINE 6.5; PROTEIN URINE NEGATIVE (NEGATIVE); SP GRAVITY URINE 1.024; TURBIDITY URINE HAZY (CLEAR); UROBILINOGEN URINE NORMAL (NORMAL)
[2018-06-30] MEDS ORDERED: VANCOMYCIN IV PER PHARMACY MISC SCH (17:42)
[2018-06-30] MEDS ORDERED: ZOFRAN IV PRN (17:42)
[2018-06-30 17:47] LABS: UR EPITHELIAL CELLS <10 /HPF (<10); URINE BACTERIA NEGATIVE /HPF; URINE RBC <10 /HPF (<10)
[2018-06-30 17:55] LABS: URINE CASTS NONE SEEN; URINE CRYSTALS NONE SEEN; URINE SMALL ROUND CELLS NONE SEEN; URINE YEAST PRESENT
--- NOTE | 2018-06-30 18:09 | HISTORY AND PHYSICAL ---
PRIMARY CARE PROVIDER: Dr. Yumiko Jackson of [place]. UROLOGIST: Dr. Ellington. GI: Dr. Redd Flanagan at [facility]. CHIEF COMPLAINT: Redness to the right side of the abdomen, nausea and vomiting, and abdominal pain. HISTORY OF PRESENT ILLNESS: Ms. Mosqueda is a 62-year-old female who has a history of cirrhosis, diabetes mellitus, hypertension, COPD, migraines. There is reported metastatic disease of unknown primary; however, after speaking with the patient, she states that she does not have cancer, and that she does not follow with an oncologist. She only follows GI and Urology and her primary care provider. She had a paracentesis done on Friday at [facility]. She woke up today with redness and increased swelling to the right side of her abdomen that extended down past her suprapubic area, starting to go around her backside on the left, which is where she received the paracentesis and started having nausea and vomiting. She denied any fever or chills. She states that she had gone to see Dr. Ellington for her urinary retention and was straight catheterized. They urged her to come to the ED to be checked out secondary to the increase in redness. In the ED, they did abdomen and pelvis CT that showed worsening cirrhotic changes in the liver, including regenerating nodules, moderate ascites, and worsening anasarca, and a stable AAA. They had also sent her for an ultrasound-guided paracentesis; however, there was not enough fluid to drain. However, she had recent biopsies that showed tubular adenomas in the large intestine from the hepatic flexure, splenic flexure, and sigmoid colon. In the ED She was shown to be septic with elevated lactate of 6. She was given 3 L bolus and initiated on broad-spectrum antibiotics, and will be admitted to the [facility]. She does have an elevated white count. She was tachycardic and afebrile, borderline hypotensive at times. Again, we will admit her to [facility], continue broad-spectrum antibiotics, and consult Dr. Rogers with GI, and place a Crockett catheter for her urinary retention and given her cellulitis and questionable spontaneous bacterial peritonitis, and we will treat her for her electrolyte abnormalities. PAST MEDICAL HISTORY: 1. Diabetes mellitus. 2. Question of metastatic disease of unknown primary. 3. Cirrhosis. 4. Hypertension. 5. COPD. 6. Migraines. PAST SURGICAL HISTORY: 1. Hernia repair. 2. Hysterectomy. 3. Bladder tack. 4. Partial colon resection. 5. Cholecystectomy. 6. Recent paracentesis performed at [facility]. FAMILY HISTORY: No documented history of colon cancer. SOCIAL HISTORY: She has a 40 pack-year history of smoking. No alcohol or illicit drug use. REVIEW OF SYSTEMS: A 14 point review of systems was completely negative except for those mentioned in HPI. PHYSICAL EXAMINATION: VITAL SIGNS: Temperature is 97.6 degrees, heart rate 103, respirations 13, blood pressure 138/69, O2 is 99% on room air. GENERAL: Ms. Mosqueda is a pleasant 62-year-old female who is lying on the stretcher in no acute distress. HEENT: Atraumatic, normocephalic. PERRL. NECK: Supple. Trachea midline. CARDIOVASCULAR: S1, S2 appreciated. No murmurs, gallops, or rubs noted. RESPIRATORY: Lungs sound clear bilaterally. GI: Soft, somewhat tender on the left side where she had a recent paracentesis. Warm to the touch on the left. Redness extends into her vaginal area as well as starting to go around to her flank. There is some increased anasarca where the redness is. There is no oozing. SKIN: Warm, dry, and intact except for redness as noted above. NEUROLOGIC: Patient is alert and oriented x4. Follows commands. Moves all extremities. No focal deficits noted. HOME MEDICATIONS: Have not been reconciled. DIAGNOSTIC DATA: Abdomen and pelvis CT: Worsening cirrhotic changes in the liver, including regenerating nodules, moderate ascites, and worsening anasarca with stable AAA. Ultrasound-guided paracentesis was not necessary as there was not enough fluid to drain. LABORATORY DATA: White count 11, hemoglobin and hematocrit 12 and 38, platelet count is 196,000. Chemistry: Sodium 137, potassium 2.7, BUN 9, creatinine 0.7 blood glucose is 142, magnesium 1.2, AST 65, ALT 21, alkaline phosphatase 199. Troponin less than 0.010. Plasma lactate was 6.5. ASSESSMENT AND PLAN: 1. Sepsis, with questionable spontaneous bacterial peritonitis and cellulitis. The patient was initiated on broad-spectrum antibiotics and given a 3 L bolus. Plasma lactate was 6. She had an increased white count, tachycardic, borderline hypotensive at times. We will continue to trend her lactate level. Treat per sepsis protocol. 2. Cellulitis to the left abdomen, extending into the vaginal area and to her left flank. We will continue with intravenous antibiotics. 3. Hypokalemia and hypomagnesemia. We will continue with supplementation of her electrolytes. 4. Diabetes mellitus. Will place her on sliding scale with patterned blood sugars. 5. Urinary retention. We will place a Crockett catheter. Patient does have cellulitis that extends down into her vaginal area. 6. Chronic obstructive pulmonary disease. No exacerbation. 7. Question of metastatic cancer with unknown primary. The patient denies any cancer history. She did have a recent gastrointestinal workup that did show tubular adenomas at hepatic flexure, splenic flexure, and the sigmoid colon. She follows with GI in [place] for her paracentesis. She is not undergoing any cancer treatment. She does have pathology from the [facility] that shows a benign liver parenchyma with mild steatohepatitis, focal pericellular fibrosis, bridging fibrosis, and local nodular formation consistent with evolving cirrhosis. There was no malignancy identified. 8. Abdominal aortic aneurysm, stable on CT. 9. History of cirrhosis, which is confirmed by diagnosis, seems to be evolving. We will continue with GI consult. 10. Further recommendation to follow physician evaluation, laboratory and diagnostic data. Discharge time: 35 minutes Dictated by RAVI Velez for Margarito Merrill MD cc: MD Catrachito Pagan MD Brendan McGuire, MD Francene Gayle, MD MTDD
[2018-06-30] MEDS: MAXIPIME 1 GM in NS 50 ML IV SCH (18:24)
[2018-06-30] MEDS: MORPHINE IV PRN (18:24)
[2018-06-30] MEDS: ULTRAM PO PRN (19:52)
[2018-06-30] MEDS: HUMALOG SUBQ SCH (21:35)
[2018-06-30 21:55] LABS: MAGNESIUM 1.6 mg/dL (1.5-2.7); POTASSIUM 2.9 mmol/L (3.5-5.1)
[2018-07-01] MEDS: MAXIPIME 1 GM in NS 50 ML IV SCH (04:49)
[2018-07-01] MEDS: ULTRAM PO PRN ×2 (04:50→15:05)
[2018-07-01 05:20] LABS: BASO# 0.07 X1000 (0.0-0.2); EOS# 0.12 X1000 (0.0-0.7); EOS% 1.7 % (0.0-10.0); HEMATOCRIT 35.1 % (37.0-47.0); HEMOGLOBIN 11.2 g/dL (12.0-16.0); LYMPH% 15.4 % (20.5-51.1); MCH 26.7 PG (27-31); MCHC 31.9 g/dL (33-37); MCV 83.8 FL (81-99); MONO# 0.79 X1000 (0.11-0.59); MONO% 11.1 % (1.7-9.3); MPV 9.8 FL (7.4-10.4); NEUT# 5.05 X1000 (1.4-6.5); NEUT% 70.8 % (42.2-75.2); PLT 145 X1000 (130-400); RBC 4.19 XMIL (4.2-5.4); RDW 20.2 % (11.5-14.5); WBC 7.13 X1000 (4.8-10.8)
[2018-07-01 05:53] LABS: AGAP 8; ALB/GLOB RATIO 0.5; ALKALINE PHOSPHATASE 158 U/L (32-104); BUN 6 mg/dL (8-22); CALCIUM 7.1 mg/dL (8.8-10.2); CHLORIDE 100 mmol/L (98-107); COSMO 278; CREATININE 0.5 mg/dL (0.5-0.9); ESTIMATED GFR > 60; GLUCOSE 142 mg/dL (70-104); GOT 50 U/L (10-30); GPT 16 U/L (10-36); POTASSIUM 3.3 mmol/L (3.5-5.1); SODIUM 139 mmol/L (136-145); TCO2 31 mmol/L (25-35); TOTAL BILIRUBIN 0.43 mg/dL (0.20-1.00); TOTAL PROTEIN 5.8 g/dL (6.3-8.3)
[2018-07-01] MEDS: HUMALOG SUBQ SCH ×4 (06:44→22:09)
[2018-07-01] MEDS: REGLAN PO SCH ×3 (06:44→15:05)
[2018-07-01] MEDS ORDERED: LIORESAL PO SCH (08:00)
[2018-07-01] MEDS: LASIX PO SCH (08:25)
[2018-07-01] MEDS: VANCOMYCIN 1,500 MG in NS 250 ML IV SCH ×2 (08:47→22:09)
[2018-07-01] MEDS: NEURONTIN PO SCH ×3 (08:47→22:03)
[2018-07-01] MEDS: LACTULOSE PO SCH ×2 (08:47→22:04)
[2018-07-01] MEDS: VESICARE PO SCH (08:47)
[2018-07-01] MEDS: CYMBALTA PO SCH ×2 (08:48→22:03)
[2018-07-01] MEDS: PRILOSEC PO SCH (08:48)
[2018-07-01] MEDS: SEROQUEL PO SCH (08:48)
[2018-07-01] MEDS: KLOR-CON PO SCH ×2 (08:48→15:06)
[2018-07-01] MEDS: LIORESAL PO SCH ×3 (08:48→22:03)
[2018-07-01] MEDS: MORPHINE IV PRN ×2 (08:49→22:05)
[2018-07-01] MEDS ORDERED: PRINIVIL PO SCH (09:00)
[2018-07-01] MEDS ORDERED: IMDUR PO SCH (09:00)
[2018-07-01] MEDS ORDERED: TOPROL XL PO SCH (09:00)
--- NOTE | 2018-07-01 09:01 | PROGRESS NOTE ---
DATE: 07/01/2018 SUBJECTIVE: This patient is still complaining of abdominal wall edema. I do believe the redness is a little bit worse compared with yesterday. Pain about the same. I will consult Infectious Disease Department to evaluate this patient. Her blood pressure is around 95/45. I will hold for today the blood pressure medication and I will monitor. OBJECTIVE: Vital Signs: Temperature 98.2 degrees, pulse 86, respiratory rate 15, blood pressure 95/45, oxygen saturation 100% on 4 L of nasal cannula. HEENT: Head normocephalic, no trauma. PERRLA. Neck: Supple. No JVD. No masses. Central trachea. Chest: Decreased breath sounds at the bases with some rales. Abdomen: Soft, moderately distended. She does have a lesion from previous paracentesis on the left side of the abdomen, and there is redness, pain, pain to palpation and warmth to palpation as well around that lesion that has spread out to the upper part of the thigh, middle abdomen and pelvic area. No signs of abscess or discharge. Extremities: No cyanosis. Neurological examination: This patient is alert. She is oriented x4. She is following commands. She moves all 4 extremities. No focal deficits. LABORATORY: WBC 7.1, hemoglobin 11.2, hematocrit 35.1, platelets are 145. Sodium 139, potassium 3.3, chloride 100, bicarbonate 31. BUN 6, creatinine 0.5, glucose 142, calcium 7.1, AST 50, ALT 16, alkaline phosphatase 158, albumin 2. ASSESSMENT AND PLAN: 1. Sepsis secondary to cellulitis to the left abdomen extending into the vaginal area, left flank. We have placed this patient on antibiotics, broad spectrum. I have consulted Infectious Disease Department. We tried to rule out also peritonitis, but we could not get any fluid out of the abdomen. 2. Cellulitis to the left abdomen, as above. 3. Hypokalemia and hypomagnesemia. I will replace the potassium today. Magnesium level today is normal. 4. Type 2 diabetes. Continue with the same management. 5. Urinary retention. Aware. We have placed a Crockett catheter. She has cellulitis that extends down to the vaginal area. 6. Chronic obstructive pulmonary disease, not in exacerbation. 7. Questionable cancer. As per Gastroenterology Department, this patient has a history of malignant polyps requiring partial colectomy. 8. Liver cirrhosis. We will continue diuresing this patient. 9. Abdominal aortic aneurysm, stable on computed tomography scan. 10. History of liver cirrhosis, which is confirmed by diagnosis and seems to be evolving. She has been getting paracentesis at [place]. Gastroenterology Department has been consulted. cc: Margarito Merrill MD
--- NOTE | 2018-07-01 12:50 | CONSULTATION ---
DATE OF CONSULTATION: 07/01/2018 CONCLUSION: The patient appears to have abdominal wall cellulitis. I am concerned that she may have infection in her underlying mesh. RECOMMENDATIONS: I agree with treating the patient with vancomycin and cefepime. I have increased the dose of cefepime to 2 g IV every 8 hours. Also, I have requested that the medical records from [facility], which the patient went to approximately 5 days ago and had an abdominal paracentesis performed, be obtained. DISCUSSION: The patient tells me approximately 5 days ago, she went to [facility] and in the left lower quadrant, a needle was put in to obtain fluid which apparently did obtain fluid. Following that, the area on her abdomen where the paracentesis occurred became erythematous and swollen, and this has spread to both flank areas now. The patient said that she has not had any fever or chills but she does have pain. Laboratory studies thus far show a CBC with a white count of 7130, hemoglobin 11.2, platelet count of 145,000. Creatinine is 0.5. GFR is greater than 60. Alkaline phosphatase is 158. Urinalysis showed white cells but no bacteria. Blood cultures are pending. Urine culture is negative thus far. CT scan of the abdomen and pelvis showed worsening cirrhosis of the liver and worsening anasarca but there was moderate ascites. PAST MEDICAL HISTORY/REVIEW OF SYSTEMS: Eyes and Ears: Her hearing is good but her vision is decreased. Neck: No stiffness. Respiratory: The patient does get short of breath and needs to wear oxygen. GI: No nausea, vomiting, or diarrhea. The patient tells me that she has not had a stool in the past week. Genitourinary: No dysuria. She does have swelling and erythema in both CVA areas, as mentioned above. Neurologic: No seizures. No loss of motor or sensory function. Endocrine: The patient is a diabetic but she does not have thyroid disease. URBAN FORESTER HISTORY: The patient is a 2, para 2, AB 0. She has had a hysterectomy. PREVIOUS HOSPITALIZATIONS AND OPERATIONS: She has had 2 labor and deliveries, a hysterectomy, appendectomy, cholecystectomy, 7 hernia operations. The patient told me she had mesh put in her abdominal wall for the hernia repair. The patient had a left total hip arthroplasty. She has also had a partial colectomy to obtain lesions that were precancerous. The patient has had 2 bladder surgeries. MEDICAL DISEASES: Positive for cirrhosis of the liver, diabetes mellitus, hypertension, COPD secondary to cigarette smoking, and precancerous lesions in her colon. The patient said that she does not have cancer. Hyperlipidemia and abdominal aortic aneurysm. INFECTIOUS DISEASE HISTORY: Positive for urinary tract infection and pneumonia. FAMILY HISTORY: Positive for diabetes mellitus, hypertension, cancer, and stroke. SOCIAL HISTORY[place] . She has a dog as a pet. She smoke cigarettes. She does not drink alcoholic beverages or abuse drugs. ALLERGIES: She is allergic to amitriptyline, hydromorphone, and sulfa. HOME MEDICATIONS: Include the following: Albuterol inhaler, baclofen, Cymbalta, Lasix, gabapentin, glimepiride, Isordil, lisinopril, lorazepam, metformin, Reglan, Toprol, Singulair, insulin, omeprazole, oxycodone, Phenergan, Maxalt, simvastatin, VESIcare, and sucralfate. PHYSICAL EXAMINATION: Vital Signs: Temperature is 98.8 degrees, pulse 90, respirations 12, blood pressure 110/50. The patient is 5 feet 6 inches tall, weighs 151 pounds. General: This is an ill-appearing and somewhat malnourished-appearing, middle-aged female. She is in no acute distress. Head, Eyes, Ears, Nose, and Throat: She can hear my spoken words and see near objects. She is wearing glasses. She does not have any white patches on her tongue. Neck: No pain with turning of her neck. Lungs: Clear to auscultation. Cardiovascular: Heart rate is regular. Abdomen: The abdominal wall is erythematous and somewhat indurated and tender. It is mainly on the left side. It seems to be occurring in both flank areas of the back. Where the actual paracentesis was performed, it has a round area of about 1 to 2 cm in diameter that has a brownish discoloration to it. Neurologic: The patient is awake. She can move her extremities. There is no tremor. Her sensation is intact to touch. Her memory as regarding her medical history is slightly reduced. Thank you for the consult. cc: Rainer Anaya MD
[2018-07-01] MEDS: MAXIPIME 2 GM/NS 2 GM/100 ML IVPB IV SCH ×2 (15:06→22:47)
--- NOTE | 2018-07-01 16:24 | GASTROENTEROLOGY CONSULTATION ---
DATE: 07/01/2018 REASON FOR CONSULTATION: Abdominal pain, cellulitis after recent paracentesis at [facility]. HISTORY OF PRESENT ILLNESS: This is a 62-year-old white female who had been seen by Dr. Jeff in the hospital in February 2018 and followed in the office in March 2018. She had been referred to Dr. Flores in April for an EGD and colonoscopy. Apparently patient had newly diagnosed cirrhosis of the liver and patient had been referred to [facility] by Dr. Jeff. The patient does not know the name of the doctor at [facility] that she has been seeing. She went for an office visit apparently last and then they scheduled her for a paracentesis on Friday. She had the procedure and went home and over the weekend she developed abdominal pain, abdominal swelling, worse on the left-side and redness. She has denied fever or chills. She did report an episode of nausea and vomiting yesterday but none so far today. She states she has had 1 bowel movement since paracentesis on Friday. Currently she reports abdominal pain. EGD and colonoscopy that was done in April 2018 showed an esophageal ring that was dilated, hemorrhagic erosive gastritis. Colonoscopy showed multiple colon polyps with polypectomy performed. Pathology had showed tubular adenomatous polyp and chronic gastritis, H-pylori was negative. PAST MEDICAL HISTORY: Reported colon cancer status post surgery. Newly diagnosed cirrhosis of the liver in February. GERD, hypertension, migraines history of colitis, diabetes, COPD. PAST SURGICAL HISTORY: Hernia repair, hysterectomy with bladder tack. Partial colon resection. Cholecystectomy. Recent paracentesis at [facility] on Friday. ALLERGIES: Amitriptyline causing fatigue. Dilaudid causing itching. Sulfa causing fatigue. HOME MEDICATIONS: 1. Albuterol inhaler daily. 2. Proventil 2 mg p.o. as needed. 3. Baclofen 10 mg 3 times a day. 4. Cymbalta 60 mg twice a day. 5. Lasix 40 mg daily. 6. Gabapentin 600 mg 3 times a day. 7. Glimepiride 4 mg twice a day. 8. Imdur 30 mg daily. 9. Lisinopril 10 mg daily. 10. Lorazepam 1 mg 4 times. 11. Glucophage 1000 mg twice a day. 12. Reglan 10 mg 3 times a day. 13. Metoprolol 25 mg daily. 14. Singulair 10 mg every night. 15. Humulin insulin subcutaneous as directed. 16. Omeprazole 40 mg daily. 17. Percocet 10/325 every 4 hours as needed. 18. Potassium 10 mEq daily. 19. Phenergan 25 every 6 hours as needed. 20. Quetiapine fumarate 100 mg daily. 21. Maxalt 10 mg every 8 hours as needed for migraine. 22. Simvastatin 40 mg every night. 23. VESIcare 10 mg daily. 24. Carafate 1 gram 4 times a day. SOCIAL HISTORY: Positive for tobacco use. No reported alcohol use. REVIEW OF SYSTEMS: Per history of present illness. PHYSICAL EXAMINATION: Vital Signs: Temperature 97.4 degrees, pulse 88, respirations 16, blood pressure 107/43. General: Patient is awake and alert. She complains of abdominal pain. HEENT: Normocephalic atraumatic. Pupils equal, round, reactive to light. Sclerae nonicteric. Respiratory: Lung sounds essentially clear. Abdomen: Swelling noted worse on the left side/flank area with redness. She has at dime sized area from her recent paracentesis fluid analysis that is darker in color. Extremities: No lower extremity edema noted. Neurologically: Cranial nerves 2-12 grossly intact. Patient is awake, alert, oriented to person, place, and time. LABORATORY: Hematology: WBC 7.13, hemoglobin 11.2, hematocrit 35.1, MCV 83.8, platelet 145,000. Coagulation: ProTime 15.1, INR 1.11, PTT 31.2. Chemistry 139, potassium 3.3, chloride 100, CO2 31, BUN 6, creatinine 0.5, glucose 142, calcium 7.1, magnesium 2.0, total bilirubin 0.43. AST 50, ALT 16, alkaline phosphatase 158, amylase 28, lipase 54. ASSESSMENT AND PLAN: 1. Sepsis related to cellulitis from recent paracentesis last Friday. Infectious disease is following and she is on antibiotics. Possibility of bacterial peritonitis. Continue antibiotics. 2. Cellulitis left abdomen. 3. Recent paracentesis. 4. Cirrhosis of the liver. 5. Will continue to follow. I believe records have been requested from her recent paracentesis and evaluation at [facility]. Continue antibiotics. 6. I have discussed this case with Dr. Flores. Further plans to be made as needed. Thank you for this consultation. Dictated by RAVI Thompson for Michele Flores MD cc: RAVI Fuentes MD [facility]
[2018-07-02 05:58] LABS: BASO# 0.07 X1000 (0.0-0.2); EOS# 0.11 X1000 (0.0-0.7); EOS% 1.5 % (0.0-10.0); HEMATOCRIT 34.5 % (37.0-47.0); HEMOGLOBIN 11.2 g/dL (12.0-16.0); IMM GRAN# 0.06 X1000 (0.0-0.04); IMM GRAN% 0.8 % (0.0-0.5); LYMPH# 1.19 X1000 (1.2-3.4); LYMPH% 16.5 % (20.5-51.1); MCHC 32.5 g/dL (33-37); MCV 83.1 FL (81-99); MONO# 0.93 X1000 (0.11-0.59); MONO% 12.9 % (1.7-9.3); MPV 10.3 FL (7.4-10.4); NEUT# 4.87 X1000 (1.4-6.5); NEUT% 67.3 % (42.2-75.2); PLT 137 X1000 (130-400); RBC 4.15 XMIL (4.2-5.4); WBC 7.23 X1000 (4.8-10.8)
[2018-07-02 06:05] LABS: AGAP 9; ALB/GLOB RATIO 0.4; ALBUMIN 1.8 g/dL (3.5-5.0); ALKALINE PHOSPHATASE 161 U/L (32-104); BUN 6 mg/dL (8-22); CHLORIDE 101 mmol/L (98-107); COSMO 277; CREATININE 0.4 mg/dL (0.5-0.9); ESTIMATED GFR > 60; GLUCOSE 167 mg/dL (70-104); GOT 59 U/L (10-30); GPT 16 U/L (10-36); POTASSIUM 3.6 mmol/L (3.5-5.1); SODIUM 138 mmol/L (136-145); TCO2 28 mmol/L (25-35); TOTAL BILIRUBIN 0.57 mg/dL (0.20-1.00); TOTAL PROTEIN 5.9 g/dL (6.3-8.3)
[2018-07-02 06:06] LABS: CALCIUM 6.8 mg/dL (8.8-10.2)
[2018-07-02] MEDS ORDERED: CALCIUM GLUCONATE 1 GM in NS 50 ML IV ONE (06:25)
[2018-07-02] MEDS: PRILOSEC PO SCH (06:36)
[2018-07-02] MEDS: ULTRAM PO PRN ×2 (06:37→12:38)
[2018-07-02] MEDS: REGLAN PO SCH ×3 (06:37→15:08)
[2018-07-02] MEDS: MAXIPIME 2 GM/NS 2 GM/100 ML IVPB IV SCH ×3 (06:38→23:03)
[2018-07-02] MEDS: HUMALOG SUBQ SCH ×4 (06:40→21:28)
[2018-07-02 06:44] LABS: BASO 1 % (0-1); EOS 1 % (1-10); LYMPHS 18 % (21-51); MONO 12 % (1-9); SEGS 68 % (42-75)
[2018-07-02] MEDS: LIORESAL PO SCH ×3 (07:59→21:18)
[2018-07-02] MEDS: KLOR-CON PO SCH ×2 (07:59)
[2018-07-02] MEDS: LACTULOSE PO SCH ×2 (07:59→21:20)
[2018-07-02] MEDS: CYMBALTA PO SCH ×2 (08:00→21:18)
[2018-07-02] MEDS: VESICARE PO SCH (08:00)
[2018-07-02] MEDS: LASIX PO SCH (08:00)
[2018-07-02] MEDS: NEURONTIN PO SCH ×3 (08:01→21:18)
[2018-07-02] MEDS: SEROQUEL PO SCH (08:01)
--- NOTE | 2018-07-02 08:29 | INFECTIOUS DISEASE PROGRESS NO ---
DATE: 07/02/2018 PRESENT ILLNESS: The patient appears to have abdominal wall cellulitis. I think it is possible that the underlying mesh could be involved as well. MEDICATIONS: This is day 2 of treatment with vancomycin and cefepime. PHYSICAL EXAMINATION: Vital Signs: Temperature is 98.1 degrees, pulse 97, respirations 16, blood pressure 108/56. General: This is an ill-appearing, middle-aged female. She is in no acute distress. Head/eyes/ears/nose/throat: She can hear my spoken words and see near objects. She does not have any white coating on her tongue. Neck: She does not have any pain when she turns her head. Lungs: Clear to auscultation. Cardiovascular: Regular heart rate. Abdomen and flanks: The abdomen and the left flank are both less erythematous and less tender. Neurologic: Patient is alert. She can move her extremities. There is no tremor. LAB AND X-RAY: There is no new x-ray for today. The CBC shows a white count of 7230, hemoglobin 11.2, and platelet count 137,000. Creatinine is 0.4, GFR is greater than 60. Alkaline phosphatase is 161. Blood cultures are pending. Urine culture was negative. IMPRESSION: The patient has abdominal wall cellulitis following an abdominal paracentesis done at [facility] in the [facility]. The patient seems to be responding to antibiotics so I plan to continue the current antibiotics, namely cefepime and vancomycin. I have requested the records from [facility] for when the patient had her abdominal paracentesis about 6 or 7 days ago but so far the records are not present. ASSESSMENT AND PLAN: As mentioned above the patient has abdominal wall cellulitis. There may be involvement of the mesh. The cellulitis involves the left flank also. My plan is to continue with both antibiotics. I am awaiting the report from [facility] where the abdominal paracentesis was performed that started the cellulitis of the abdominal wall and flank area. COMORBIDITIES: The patient has cirrhosis of the liver, diabetes mellitus, COPD, and a history of cigarette smoking and precancerous lesions in her colon which have been removed. cc: Rainer Anaya MD
[2018-07-02] MEDS: VANCOMYCIN 1,500 MG in NS 250 ML IV SCH ×2 (08:37→21:17)
--- NOTE | 2018-07-02 09:05 | PROGRESS NOTE ---
DATE: 07/02/2018 SUBJECTIVE: This patient is still complaining of abdominal pain and wall edema, but the pain is a little bit better, she is still having redness which I believe compared with yesterday is about the same, her blood pressure has been borderline low so I will hold the blood pressure medication for now. OBJECTIVE: Vital Signs: Temperature 98.8 degrees, pulse 98, respiratory rate 14, blood pressure 107/64, oxygen saturation 97% on 4 L of nasal cannula. HEENT: Head normocephalic. No trauma. PERRLA. Neck: Supple. No JVD. No masses. Central trachea. Chest: Decreased breath sounds at the bases with some rales. Abdomen: Soft moderately distended. She does have a lesion from previous paracentesis on the left side of the abdomen, there is redness, pain and is warm to palpation, the redness spread out to the upper part of the thigh, middle abdomen, pelvic area and back, no signs of abscess for now or discharge. Extremities: No cyanosis. Neurological: The patient is alert, she is oriented x4. Following commands. She moves all 4 extremities. No focal deficits. LABORATORY DATA: WBC 7.2, hemoglobin 11.2, hematocrit 34.5, platelets 137,000. Sodium 138, potassium 3.6, chloride 101, bicarbonate 28, BUN 6, creatinine 0.4, glucose 167, calcium 6.8. AST 59, ALT 16, alkaline phosphatase 161, albumin 1.8. ASSESSMENT AND PLAN: 1. Sepsis secondary to cellulitis to the left abdomen extended extending into the vaginal area, left flank, and middle abdomen, Infectious Disease Department on board. We have we will continue with the same antibiotics, this patient has a previous surgical scar with a mesh has been placed before, there is a possibility of infection in that area but for now, we will continue with the same management. 2. Cellulitis to the left abdomen, as above. 3. Hypokalemia with hypomagnesemia, resolved. 4. Hypocalcemia. We have replaced the calcium. 5. Type 2 diabetes. Continue with same management. 6. Urinary retention. For now, we will continue with the Crockett catheter, she has cellulitis that extends down to the vaginal area. 7. Chronic obstructive pulmonary disease, not in exacerbation. 8. Questionable cancer as per the patient and Gastroenterology Department. This patient had a history of malignant polyps requiring partial colectomy. 9. Liver cirrhosis. Continue with diuresis and she is on lactulose because she has not had any bowel movement so far. 10. Abdominal aortic aneurysm, stable. 11. Borderline hypotension. I will hold all the blood pressure medication and I will monitor. cc: Margarito Merrill MD
[2018-07-03] MEDS: MAXIPIME 2 GM/NS 2 GM/100 ML IVPB IV SCH ×2 (05:54→13:57)
[2018-07-03] MEDS: HUMALOG SUBQ SCH ×4 (06:00→21:14)
[2018-07-03] MEDS: REGLAN PO SCH ×3 (06:00→16:38)
[2018-07-03] MEDS: PRILOSEC PO SCH (06:00)
[2018-07-03] MEDS: VANCOMYCIN 1,500 MG in NS 250 ML IV SCH (08:26)
[2018-07-03] MEDS: CYMBALTA PO SCH ×2 (08:27→21:13)
[2018-07-03] MEDS: SEROQUEL PO SCH ×2 (08:27→08:28)
[2018-07-03] MEDS: LASIX PO SCH (08:27)
[2018-07-03] MEDS: LIORESAL PO SCH ×3 (08:27→21:13)
[2018-07-03] MEDS: LACTULOSE PO SCH ×2 (08:27→21:14)
[2018-07-03] MEDS: KLOR-CON PO SCH ×2 (08:27→08:28)
[2018-07-03] MEDS: NEURONTIN PO SCH ×3 (08:29→21:13)
[2018-07-03 08:37] LABS: AGAP 7; ALB/GLOB RATIO 0.5; ALBUMIN 2.1 g/dL (3.5-5.0); ALKALINE PHOSPHATASE 190 U/L (32-104); BUN 6 mg/dL (8-22); CALCIUM 7.7 mg/dL (8.8-10.2); CHLORIDE 98 mmol/L (98-107); COSMO 273; CREATININE 0.5 mg/dL (0.5-0.9); ESTIMATED GFR > 60; GLUCOSE 187 mg/dL (70-104); GOT 70 U/L (10-30); GPT 23 U/L (10-36); POTASSIUM 3.5 mmol/L (3.5-5.1); SODIUM 135 mmol/L (136-145); TCO2 30 mmol/L (25-35); TOTAL BILIRUBIN 1.12 mg/dL (0.20-1.00); TOTAL PROTEIN 6.6 g/dL (6.3-8.3)
[2018-07-03] MEDS: MORPHINE IV PRN ×4 (08:37→22:50)
[2018-07-03] MEDS: VESICARE PO SCH (11:33)
--- NOTE | 2018-07-03 11:50 | PROGRESS NOTE ---
DATE: 07/03/2018 SUBJECTIVE: This patient is still complaining of abdominal pain and wall edema, but the pain is better. She is still having redness. Vital signs are stable, a little bit tachycardic though. OBJECTIVE: Vital Signs: Temperature 98 degrees, pulse 107, respiratory rate 18, blood pressure 121/58, oxygen saturation 96 on 4 L of nasal cannula. HEENT: Head normocephalic, no trauma. PERRLA. Neck: Supple. No JVD. No masses. Central trachea. Chest: Decreased breath sounds at the bases with some rales. Abdomen: Soft. Moderately distended. She does have a lesion from the previous paracentesis on the left side of the abdomen and a midline scar. There is redness, pain and is warm to palpation around that paracentesis lesion. The redness has spread out to the upper part of the thigh, middle abdomen, back and pelvic area. No signs of abscess for now or discharge. Extremities: No edema, no cyanosis. Neurological examination: The patient is alert and oriented x4. She is following commands. She moves all 4 extremities. No focal deficits. LABORATORY: Sodium 135, potassium 3.5, chloride 98, bicarbonate 30. BUN 6, creatinine 0.5, glucose 187, calcium 7.7. AST 70, ALT 23, alkaline phosphatase 190, albumin 2.1. ASSESSMENT AND PLAN: 1. Sepsis secondary to cellulitis to the left abdomen extending into the vaginal area, left flank, middle abdomen and back. Infectious Disease Department on board. We will continue with antibiotics. She has a previous midline abdominal scar with a mesh, and there is a possibility of infection in that area. 2. Cellulitis to the left abdomen as above. 3. Hypokalemia with hypomagnesemia, resolved. 4. Hypocalcemia. Continue with same management. 5. Type 2 diabetes. Continue with same treatment. Stable. 6. Urinary retention. For now, we will continue with the Crockett catheter. She has cellulitis that extends down to the vaginal area. 7. Chronic obstructive pulmonary disease, not in exacerbation. 8. Questionable cancer. As per Gastroenterology Department, she had a history of malignant polyps requiring partial colectomy. 9. Liver cirrhosis. Continue with diuresis, continue with lactulose. She is having bowel movements. 10. Abdominal aortic aneurysm. Aware. 11. Borderline hypotension, I have been holding her blood pressure medication, and I will continue to monitor. cc: Margarito Merrill MD
--- NOTE | 2018-07-03 15:37 | GASTROENTEROLOGY PROGRESS NOTE ---
DATE: 07/03/2018 SUBJECTIVE: The patient states she feels a little weaker today. She has gotten up some this morning. Her abdominal pain has improved slightly. She continues to have some redness and still some swelling to the abdomen. OBJECTIVE: Vital signs: Temperature is 98.0, pulse 107, respirations 18, blood pressure 121/58. General: The patient is awake and alert, no acute distress. Abdomen: Soft. Distention noted with redness, worse on the left side. Otherwise positive bowel sounds. DIAGNOSTIC DATA: Hematology shows WBC of 7.23, hemoglobin 11.2, hematocrit 34.5, MCV of 83.1, platelets 137. Chemistry showed sodium 135, potassium 3.5, chloride 98, CO2 of 30, BUN is 6, creatinine 0.5, glucose 187. ASSESSMENT AND PLAN: 1. Sepsis secondary to cellulitis of the left abdomen. Infectious Disease following. The patient is on antibiotics. 2. Recent paracentesis, developing cellulitis after. Continue antibiotics. 3. GI will continue to follow and be available as needed. Further plans will be made according to her progress. I have discussed this case with Dr. Flores. Dictated by RAVI Thompson for Michele Flores MD cc: RAVI Fuentes MD
--- NOTE | 2018-07-03 17:35 | INFECTIOUS DISEASE PROGRESS NO ---
DATE: 07/03/2018 PRESENT ILLNESS: The patient has abdominal wall cellulitis. It appears that it is clearing well and hopefully that means that the patient's mesh is not involved. MEDICATIONS: This is the third day of treatment with a combination of vancomycin and cefepime. PHYSICAL EXAMINATION: Vital Signs: Temperature is 98 degrees, pulse 107, respirations 18, blood pressure 121/58. General: This is a chronically ill-appearing middle-aged female. She is in no distress at this time. Head/eyes/ears/nose/throat: She can hear my spoken words and see near objects. She does not have any white coating on her tongue. Neck: There does not seem to be any pain when she moves her neck. Lungs: Clear to auscultation. Cardiovascular: Regular heart rate. Abdomen: Very swollen with what appears to be fluid. Most all of the erythema on the abdomen and the left flank area has cleared up. The abdomen is not tender to light palpation. Neurologic: The patient is alert. She can move her extremities. There is no tremor. LAB AND X-RAY: There is no new radiographic study. Creatinine is 0.5. GFR is greater than 60. Alkaline phosphatase is 190. Blood and urine cultures thus far are sterile. ASSESSMENT AND PLAN: We did get a copy of the patient's hospitalization at [facility] and it appears that they are saying the patient has cirrhosis of the liver and that is the reason why she is having the ascites. They mention that they did a paracentesis and obtained 7000 mL of fluid. We did not see any studies that were done on the ascites itself. There was no culture of the ascites seen. I think that most likely the patient had abdominal wall cellulitis after an abdominal paracentesis was performed to drain off fluid in the patient's abdomen. My plan will be to switch her over to Ceftin and doxycycline. The patient does have an appointment at [facility] scheduled from approximately 2 weeks from now. COMORBIDITIES: The patient has cirrhosis of the liver with ascites. The patient also is a diabetic. She has COPD and history of cigarette smoking. She also had precancerous lesions in her colon which have been removed. cc: Rainer Anaya MD
[2018-07-03] MEDS: DOXYCYCLINE PO SCH (18:39)
[2018-07-03] MEDS: CEFTIN PO SCH (18:39)
[2018-07-04] MEDS: MORPHINE IV PRN ×2 (04:43→12:48)
[2018-07-04] MEDS: CEFTIN PO SCH ×2 (06:10→17:05)
[2018-07-04] MEDS: DOXYCYCLINE PO SCH ×2 (06:10→17:06)
[2018-07-04] MEDS: REGLAN PO SCH ×3 (06:10→15:02)
[2018-07-04] MEDS: PRILOSEC PO SCH (06:11)
[2018-07-04] MEDS: HUMALOG SUBQ SCH ×4 (06:11→21:24)
[2018-07-04 07:08] LABS: BASO# 0.07 X1000 (0.0-0.2); BASO% 0.6 % (0.0-0.8); EOS# 0.12 X1000 (0.0-0.7); HEMATOCRIT 35.6 % (37.0-47.0); HEMOGLOBIN 11.5 g/dL (12.0-16.0); IMM GRAN# 0.02 X1000 (0.0-0.04); IMM GRAN% 0.2 % (0.0-0.5); LYMPH% 16.4 % (20.5-51.1); MCH 26.6 PG (27-31); MCHC 32.3 g/dL (33-37); MCV 82.2 FL (81-99); MONO# 1.41 X1000 (0.11-0.59); MONO% 11.6 % (1.7-9.3); MPV 10.2 FL (7.4-10.4); NEUT# 8.56 X1000 (1.4-6.5); NEUT% 70.2 % (42.2-75.2); PLT 166 X1000 (130-400); RBC 4.33 XMIL (4.2-5.4); RDW 19.7 % (11.5-14.5); WBC 12.18 X1000 (4.8-10.8)
[2018-07-04 07:24] LABS: AGAP 4; ALB/GLOB RATIO 0.5; ALBUMIN 2.1 g/dL (3.5-5.0); ALKALINE PHOSPHATASE 176 U/L (32-104); BUN 5 mg/dL (8-22); CALCIUM 7.5 mg/dL (8.8-10.2); CHLORIDE 99 mmol/L (98-107); COSMO 265; CREATININE 0.4 mg/dL (0.5-0.9); ESTIMATED GFR > 60; GLUCOSE 158 mg/dL (70-104); GOT 65 U/L (10-30); GPT 23 U/L (10-36); POTASSIUM 3.4 mmol/L (3.5-5.1); SODIUM 132 mmol/L (136-145); TCO2 29 mmol/L (25-35); TOTAL BILIRUBIN 0.75 mg/dL (0.20-1.00); TOTAL PROTEIN 6.2 g/dL (6.3-8.3)
[2018-07-04] MEDS: CYMBALTA PO SCH ×2 (09:43→21:23)
[2018-07-04] MEDS: LIORESAL PO SCH ×3 (09:43→21:23)
[2018-07-04] MEDS: SEROQUEL PO SCH ×2 (09:43→12:48)
[2018-07-04] MEDS: LASIX PO SCH (09:43)
[2018-07-04] MEDS: NEURONTIN PO SCH ×3 (09:43→21:23)
[2018-07-04] MEDS: KLOR-CON PO SCH ×2 (09:43)
[2018-07-04] MEDS: LACTULOSE PO SCH ×2 (09:43→21:23)
[2018-07-04] MEDS: VESICARE PO SCH (09:50)
--- NOTE | 2018-07-04 13:31 | PROGRESS NOTE ---
DATE: 07/04/2018 SUBJECTIVE: This patient is still complaining of abdominal pain, but the pain is much better, as well as the redness. Vital signs are stable. Tomorrow, I will re-evaluate this patient for possible discharge. OBJECTIVE: Vital Signs: Temperature 98.1 degrees, pulse 99, respiratory rate 21, blood pressure 120/43, oxygen saturation 100% on 3 L of nasal cannula. HEENT: Head normocephalic, no trauma. PERRLA. Neck: Supple. No JVD. No masses. Central trachea. Chest: Decreased breath sounds at the bases with some rales. Abdomen: Soft, moderately distended. The redness is much better, but still having some pain to palpation. No signs of abscess or discharge for now. Extremities: No edema, no clubbing, no cyanosis. Neurologic: This patient is sleepy, but arousable. She is answering my questions. At the moment when I evaluated this patient, she received morphine a few hours before. LABORATORY: WBC 12.1, hemoglobin 11.5, hematocrit 35.6, platelets 166,000. Sodium 132, potassium 3.4, chloride 99, bicarbonate 29, BUN 5, creatinine 0.4, glucose 158, calcium 7.5, AST 65, ALT 23, alkaline phosphatase 176, albumin 2.1. ASSESSMENT AND PLAN: 1. Sepsis, secondary to cellulitis to the left abdomen, extending into the vaginal area, left flank, middle abdomen and back. Infectious Disease Department on board. We will continue with antibiotics. This is looking much better. 2. Cellulitis to the left abdomen, as above. 3. Hypokalemia with hypomagnesemia. Magnesium level is better. I will replace the potassium today, and I will recheck the magnesium tomorrow again. 4. Hypocalcemia, stable. 5. Type 2 diabetes. Continue with the same treatment. 6. Urinary retention. It looks like she is getting better. 7. Chronic obstructive pulmonary disease, not in exacerbation. 8. Liver cirrhosis. She needs to follow up with her gastroenterologists as an outpatient. We will continue with Lasix and lactulose upon discharge. 9. Abdominal aortic aneurysm. Aware. 10. Borderline hypotension. Blood pressure is better. I will continue holding her blood pressure medication. 11. Apparently, she has a history of malignant polyps, requiring partial colectomy. Aware. cc: Margarito Merrill MD
[2018-07-04] MEDS: ULTRAM PO PRN (17:05)
[2018-07-04] MEDS: PERCOCET-10 PO PRN (18:32)
[2018-07-05] MEDS: PERCOCET-10 PO PRN (03:48)
[2018-07-05] MEDS ORDERED: ATIVAN PO ONE ×2 (05:38→05:41)
[2018-07-05] MEDS: HUMALOG SUBQ SCH (05:59)
[2018-07-05] MEDS: REGLAN PO SCH (06:04)
[2018-07-05] MEDS: DOXYCYCLINE PO SCH (06:04)
[2018-07-05] MEDS: CEFTIN PO SCH (06:04)
[2018-07-05] MEDS: PRILOSEC PO SCH (06:04)
[2018-07-05 07:18] LABS: BASO# 0.08 X1000 (0.0-0.2); BASO% 0.6 % (0.0-0.8); EOS# 0.14 X1000 (0.0-0.7); EOS% 1.1 % (0.0-10.0); HEMATOCRIT 39.4 % (37.0-47.0); HEMOGLOBIN 12.6 g/dL (12.0-16.0); IMM GRAN# 0.03 X1000 (0.0-0.04); IMM GRAN% 0.2 % (0.0-0.5); LYMPH% 17.3 % (20.5-51.1); MCH 26.7 PG (27-31); MCV 83.5 FL (81-99); MONO# 1.91 X1000 (0.11-0.59); MPV 10.3 FL (7.4-10.4); NEUT# 8.37 X1000 (1.4-6.5); NEUT% 65.8 % (42.2-75.2); PLT 215 X1000 (130-400); RBC 4.72 XMIL (4.2-5.4); WBC 12.73 X1000 (4.8-10.8)
[2018-07-05 07:30] LABS: AGAP 6; ALB/GLOB RATIO 0.5; ALBUMIN 2.3 g/dL (3.5-5.0); ALKALINE PHOSPHATASE 191 U/L (32-104); BUN 7 mg/dL (8-22); CALCIUM 7.7 mg/dL (8.8-10.2); CHLORIDE 95 mmol/L (98-107); COSMO 263; CREATININE 0.4 mg/dL (0.5-0.9); ESTIMATED GFR > 60; GLUCOSE 143 mg/dL (70-104); GOT 70 U/L (10-30); GPT 25 U/L (10-36); POTASSIUM 3.7 mmol/L (3.5-5.1); SODIUM 131 mmol/L (136-145); TCO2 30 mmol/L (25-35); TOTAL BILIRUBIN 1.09 mg/dL (0.20-1.00); TOTAL PROTEIN 6.7 g/dL (6.3-8.3)
[2018-07-05 08:07] VITALS: BP 125/56
[2018-07-05] MEDS: CYMBALTA PO SCH (08:10)
[2018-07-05] MEDS: VESICARE PO SCH (08:10)
[2018-07-05] MEDS: NEURONTIN PO SCH (08:10)
[2018-07-05] MEDS: KLOR-CON PO SCH (08:10)
[2018-07-05] MEDS: LACTULOSE PO SCH (08:10)
[2018-07-05] MEDS: LIORESAL PO SCH (08:10)
[2018-07-05] MEDS: LASIX PO SCH (08:10)
[2018-07-05] MEDS ORDERED: ALDACTONE PO SCH (09:00)
--- NOTE | 2018-07-05 09:45 | INFECTIOUS DISEASE PROGRESS NO ---
DATE: 07/05/2018 SUBJECTIVE: The patient has abdominal wall cellulitis. She is being discharged today on a combination of Ceftin 500 mg every 12 hours and doxycycline 100 mg p.o. every 12 hours for 10 more days and I have requested that the patient have an appointment in my office in 10 days also. cc: Rainer Anaya MD
--- NOTE | 2018-07-05 17:56 | DISCHARGE SUMMARY ---
ADMISSION DATE: 06/30/2018 DISCHARGE DATE: 07/05/2018 ADMISSION DIAGNOSES: 1. Sepsis. 2. Cellulitis of the left abdomen, questionable spontaneous bacterial peritonitis. 3. Hypokalemia and hypomagnesemia. 4. Type 2 diabetes mellitus. 5. Urinary retention. 6. Chronic obstructive pulmonary disease. 7. Question of metastatic cancer of unknown primary. 8. History of abdominal aortic aneurysm. 9. History of cirrhosis. DISCHARGE DIAGNOSES: 1. Sepsis secondary to cellulitis of the left abdomen. 2. Hypokalemia and hypomagnesemia. 3. Hypocalcemia. 4. Type 2 diabetes. 5. Urinary retention. 6. Chronic obstructive pulmonary disease. 7. Cirrhosis of the liver. 8. Abdominal aortic aneurysm, stable. 9. Borderline hypotension. 10.History of malignant polyps requiring partial colectomy. CONSULTATIONS: Gastroenterology, Dr. Flores and Infectious Disease, Dr. Anaya. DIAGNOSTIC PROCEDURES AND FINDINGS: Abdomen and pelvis CT 06/30/2018, worsened cirrhotic changes in the liver including regenerating nodules, moderate ascites, and worsened anasarca, stable AAA. EKG 06/30/2018, sinus tachycardia with PACs. HOSPITAL COURSE: Mrs. Mosqueda is a 62-year-old female with a history of cirrhosis, type 2 diabetes, who follows GI and Neurology at [facility]. She recently had a paracentesis at [facility] and woke up on the day of admission with increased swelling to the right side of her abdomen, extending past the suprapubic area. This was associated with nausea and vomiting. She had gone to Dr. Ellington, her urologist, for urinary retention. At that time she was straight catheterized for urine and they recommended that she come to the ER for evaluation of the cellulitis. When she got to the ER she had abdomen and pelvis CT which showed worsened cirrhosis but nothing acute. There was moderate ascites. She was admitted and started on IV antibiotics. Dr. Anaya was consulted who continued the vancomycin and cefepime that was started. We also consulted GI who did not have any acute recommendations. Her symptoms improved with IV antibiotics and time. Cultures never grew anything. Her symptoms did improve to the point where we felt that she was stable for discharge home. DISCHARGE MEDICATIONS: Duloxetine 60 mg daily, Neurontin 600 mg p.o. t.i.d., VESIcare 10 mg daily, Singulair 10 mg q p.m., Lasix 40 mg daily, Reglan 10 mg t.i.d., Baclofen 10 mg p.o. t.i.d., Albuterol inhaled as needed, Humulin N sliding scale insulin, omeprazole 40 mg daily, Phenergan 25 mg p.o. q six hours as needed for nausea/vomiting, Carafate 1 gram p.o. four times a day, Ceftin 500 mg p.o. q 12 hours for six days, doxycycline 100 mg p.o. q 12 hours for six days, oxycodone 10 one p.o. q six hours p.r.n. pain 20 tablets and no refills, Aldactone 100 mg daily, lactulose 30 mL p.o. b.i.d. DISCHARGE DIET: Low sodium, diabetic. DISCHARGE ACTIVITY: Resume activity as tolerated. DISCHARGE LABS: WBC 12.73, hemoglobin 12.6, hematocrit 39.4, platelet count 215. Sodium 131, potassium 3.7, chloride 95, CO2 30, anion gap 6, BUN 7, creatinine 0.4, glucose 143, calcium 7.7, magnesium 1.4, total bilirubin 1.09, AST 70, ALT 25, alkaline phosphatase 191, albumin 2.3. DISPOSITION AND OTHER DISCHARGE INSTRUCTIONS: The patient is discharged home to self care. She is to follow up with Dr. Melanie Jackson, her PCP, Dr. Flores as directed, and Dr. Anaya within ten days. She is to also follow up with her urologist, Dr. Ellington as directed and optical mechanic apprentice at [facility] as directed. She is to continue all medications as directed and return to the ER or call 911 for worsening complaints or concerns. All questions answered. Discharge time greater than 35 minutes. Dictated by RAVI Rowland for Margarito Merrill MD cc: RAVI Rowland MD Francene Gayle, MD Khurshid Yousuf, MD Leroy F. Harris, MD Sergey S. Ananyev, MD
== END 2018-07-05 10:52 | disposition home or self-care (01) | DRG 863 ==
LOC: ED 13:14 → 3S 13:15 → 3N 07-02 15:42
PROVIDERS: ATTEND Internal Medicine
CPT/HCPCS: 74177; 80053; 80202; 81001; 82150; 82330; 82550; 82948; 83605; 83690; 83735; 84132; 84484; 85025; 85610; 85730; 87040; 87088; 93005; 94761; 96365; 96366; 96368; 96375; 97162; 97530; 99285; A9270; J0610; J0692; J1815; J2270; J2405; J2543; J3370; J3475; J7030; J7050; Q9967; S0030; XXXXX

== ENCOUNTER 2018-08-09 07:20 | Inpatient (IN) ==
[2018-08-09 08:01] LABS: HEMOGLOBIN 14.4 g/dL (12.0-16.0); MCH 27.3 PG (27-31); MCHC 33.5 g/dL (33-37); MCV 81.6 FL (81-99); MPV 11.2 FL (7.4-10.4); PLT 205 X1000 (130-400); RBC 5.27 XMIL (4.2-5.4); WBC 12.34 X1000 (4.8-10.8)
--- NOTE | 2018-08-09 08:13 | PROVIDER DOCUMENTATION ---
HPI-General Adult - General Chief Complaint: Abdominal Pain Stated Complaint: ABD PAIN Time Seen by Provider: 08/09/18 08:01 Source: patient Allergies/Adverse Reactions: Patient Allergies Allergy/AdvReac Type Severity Reaction Status Date / Time amitriptyline Allergy Intermediate FATIGUE Verified 06/30/18 15:26 hydromorphone [From Dilaudid] Allergy ITCHING Verified 06/30/18 15:26 Sulfa (Sulfonamide Allergy FATIGUE Verified 06/30/18 15:26 Antibiotics) Home Medications: Home Medication List Medication Instructions Recorded Confirmed Last Taken Type Baclofen 10 mg PO TID CC 03/15/18 06/30/18 04/28/18 08:00 History 10 Duloxetine [Cymbalta] 60 mg PO BID 03/15/18 06/30/18 04/28/18 08:00 History 60 Furosemide [Lasix] 40 mg PO DAILY 03/15/18 06/30/18 Unknown History Gabapentin 600 mg PO TID 03/15/18 06/30/18 04/28/18 23:00 History 600 Metoclopramide [Reglan] 10 mg PO TID AC 03/15/18 06/30/18 04/28/18 23:00 History 10 Montelukast Sodium [Singulair] 10 mg PO QPM 03/15/18 06/30/18 04/28/18 23:00 History 10 Solifenacin Succinate [Vesicare] 10 mg PO DAILY 03/15/18 06/30/18 04/28/18 23:00 History 10 Albuterol Sulfate [Proair Hfa] 2 puff IH DAILY 04/27/18 06/30/18 04/28/18 19:00 History 2 Albuterol [Albuterol Neb] 2.5 mg INH [id number] 04/27/18 04/27/18 Unknown History Albuterol [Proventil Liquid] 2 mg PO PRN PRN 04/27/18 06/30/18 04/28/18 08:00 History 2 NPH, Human Insulin Isophane 100 unit SQ DIRECTED PRN PRN 04/27/18 06/30/18 Unknown History [Humulin N] Omeprazole 40 mg PO DAILY 04/27/18 06/30/18 04/28/18 23:00 History 40 Promethazine [Phenergan] 25 mg PO Q6H PRN PRN 04/27/18 06/30/18 04/29/18 08:00 History 25 Sucralfate 1 gm PO 4X06/30/18 06/30/18 Unknown History CefUROXIME [Ceftin] 500 mg PO Q12H #20 tab 07/05/18 Unknown Rx Doxycycline 100 mg PO Q12H #20 tab 07/05/18 Unknown Rx Lactulose 30 ml PO BID udc 07/05/18 Unknown Rx Oxycodone/APAP 10 mg/325 mg 1 ea PO Q6H PRN PRN #20 tab 07/05/18 Unknown Rx [Percocet-10] Spironolactone [Aldactone] 100 mg PO DAILY #90 tab 07/05/18 Unknown Rx - History of Present Illness -Gen Adult Nature of Presenting Problems: 62 y/o WF c/o severe headache and abdo pain since last night. Family reports that she has been confused since last night and tried to go to the bathroom in the refrigerator this am. Location of Pain/Injury: reports: head, abdomen Pain Radiation: reports: no radiation Quality of Pain: reports: aching, cramping Severity: reports: severe Onset/Duration: reports: last night Timing: reports: still present, getting worse Context/Activities at Onset: reports: light activity Modifying Factors: improves with: vomiting Associated Symptoms: reports: headaches, nausea, vomiting Similar Symptoms Previously?: Yes (pt states years ago pt was like this and had sepsis) Recently seen or treated by another doctor?: No Review of Systems - Adult - REVIEW OF SYSTEMS - ADULT Constitutional: reports: no symptoms reported, see HPI Eyes: reports: no symptoms reported, see HPI Ears, Nose, Mouth & Throat: reports: no symptoms reported, see HPI Cardiovascular: reports: no symptoms reported, see HPI Respiratory: reports: no symptoms reported, see HPI Gastrointestinal: reports: see HPI, abdominal pain Genitourinary: reports: no symptoms reported, see HPI Musculoskeletal: reports: no symptoms reported, see HPI Integumentary: reports: no symptoms reported, see HPI Neurological: reports: see HPI, headache/migraines Psychiatric: reports: no symptoms reported, see HPI Endocrine: reports: no symptoms reported, see HPI Hematologic/Lymphatic: reports: no symptoms reported, see HPI Allergic/Immunologic: reports: no symptoms reported, see HPI All Other Systems: Reviewed and Negative Past History - Adult - PAST MEDICAL HISTORY-ADULT Review of Records: reports: Nursing Assessment Review, Medications Reviewed, Social history reviewed & non-contributory. Major Childhood Illnesses: reports: denies history Cardiovascular: reports: HTN Respiratory: reports: asthma, COPD Gastrointestinal: reports: denies history Obstetrical/Gynecological: reports: denies history Genitourinary: reports: denies history Musculoskeletal: reports: denies history Neurological: reports: denies history, headaches/migraines Endocrine/Immune: reports: Diabetes Other Conditions: reports: denies history - PRIOR SURGERIES/PROCEDURES Surgical/Procedure History: reports: reviewed, not pertinent - IMMUNIZATION STATUS Childhood Immunizations: See Nurse Assessment Flu Vaccine: See Nurse Assessment - FAMILY HISTORY Family History: reviewed, not pertinent Physical Exam-General - PHYSICAL EXAM-ADULT Initial Vital Signs Reviewed: Yes - CONSTITUTIONAL General Appearance: alert, mild distress - EYES Eyes: PERRL/EOMI - HEAD, EARS, NOSE, MOUTH & THROAT HENMT: normocephalic/atraumatic, moist mucous membranes - NECK Neck: non-tender, full range of motion, supple, normal inspection - RESPIRATORY Respiratory: chest non-tender, lungs clear, normal breath sounds, no pleuratic chest pain, no respiratory distress, no accessory muscle use - CARDIOVASCULAR Cardiovascular: normal peripheral pulses, regular rate, rhythm, no edema, no gallop, no JVD, no murmur - GASTROINTESTINAL (ABDOMEN) Abdominal Exam: normal bowel sounds, soft, no organomegaly, no pulsatile mass, rebound, tenderness - LYMPHATIC Lymphatic: no adenopathy - MUSCULOSKELETAL Back Exam: normal inspection, no CVA tenderness, no vertebral tenderness Extremity: normal range of motion, non-tender, normal gait, normal inspection, no pedal edema, no calf tenderness, normal capillary refill - SKIN Integumentary: normal color, normal turgor - NEUROLOGIC Neurologic: inspector penetrant II-XII nml as tested, grossly normal, no motor/sensory deficits - PSYCHIATRIC Psych/Mental Status: normal mood/affect, normal thought content, normal thought process, oriented x 3 Progress - PLAN OF CARE/RESULTS Progress/Plan/Lab Results: Vital Signs - 8 hr 08/09/18 07:44 Temperature 98.0 F Pulse Rate 100 H Respiratory Rate 18 Blood Pressure 144/78 O2 Sat by Pulse Oximetry 100 Laboratory Results - last 24 hr 08/09/18 07:40 WBC 12.34 H RBC 5.27 Hgb 14.4 Hct 43.0 MCV 81.6 MCH 27.3 MCHC 33.5 RDW Std Deviation 19.0 H Plt Count 205 MPV 11.2 H Orders Category Date Time Status Saline Loc DIRECTED Care 08/09/18 07:52 Active NPO Diet 08/09/18 07:[address] ABD/PELVIS W/IV CONT ONLY [CT] Stat Exams 08/09/18 08:[address] HEAD W/O CONTRAST [CT] Stat Exams 08/09/18 08:07 Ordered AMMONIA [CHEM] Stat Lab 08/09/18 07:40 Received AMYLASE [CHEM] Stat Lab 08/09/18 07:40 Received CBC WITH ELECTRONIC DIFF [HEME] Stat Lab 08/09/18 07:40 Results COMPREHENSIVE METABOLIC PANEL [CHEM] Stat Lab 08/09/18 07:40 Received LIPASE [CHEM] Stat Lab 08/09/18 07:40 Received URINALYSIS W/POSS RFLX CULT [URINALYSIS] Stat Lab 08/09/18 07:52 Uncollected Result Diagrams: 08/09/18 07:40 08/09/18 07:40 - CT/MRI 1 CT Study: Abdomen Impression: Abnormal, See EMR Report ( Patient: NICOLASA HIDALGODM Date: 08/09/18MR#: [id number] : 1955DM Status: REG ERAcct#: [id number] Age/Sex: 62/FRoom/Bed: Loc: ED Ordering Physician: Constantine Mccoy MD Family Physician: None,PCP Reason for Procedure: abdo pain _ __ Signed EXAM: CT ABD/PELVIS W/IV CONT ONLY HISTORY: abdo pain TECHNIQUE: Emergency CT abdomen and pelvis with intravenous contrast COMPARISON: 06/30/2018 FINDINGS: There is fatty infiltration of the liver. There are many scattered hypodense nodules throughout the liver. No fluid about the liver on the current exam. The gallbladder has been removed. Normal spleen, pancreas, adrenal glands, and kidneys. The spleen is not enlarged on the current exam. No hydronephrosis. Mild dilatation to the mid to distal aorta measuring 2.3 cm in maximum diameter. Prominent atherosclerosis. There is a large amount of stool throughout the colon. The urinary bladder is only mildly distended. The uterus has been removed. Orthopedic replacement of the left hip. No pelvic mass. IMPRESSION: 1.Fatty liver with multiple hypodense nodules throughout. These are actually more difficult to appreciate on the current exam. 2.No free fluid on the current study 3.Severe constipation 4.Prominent atherosclerosis 5. Hysterectomy This exam was performed using automated exposure control, adjustment of mA or kV according to patient size, and/or use of iterative reconstruction technique. Electronically signed by Yonas Ignacio 08/09/2018 11:06 AM 08/09/18 1106 Interpreting Physician: Yonas Ignacio MD Dic tated Date/Time: 08/09/18 1101 cc: oCnstantine Mccoy MD; None,PCP) 2 CT Study: Head Impression: Normal, See EMR Report ( Patient: NICOLASA HIDALGODM Date: 08/09/18#: [id number] : 1955 Status: [facility] ERAcct#: [id number] Ag e/Sex: 62/FRoom/Bed: Loc: ED Ordering Physician: Constantine Mccyo MD Family Physician: None,PCP Reason for Procedure: severe headache Signed EXAM: CT HEAD W/O CONTRAST HISTORY: severe headache TECHNIQUE: Emergency CT of the head without contrast COMPARISON: 03/19/2018 FINDINGS: No parenchymal hemorrhage. No epidural or subdural hematoma. No subarachnoid hemorrhage. No mass identified on this noncontrasted exam. No hydrocephalus. No sinus opacification. IMPRESSION: No hemorrhage. Negative brain CT without contrast. This exam was performed using automated exposure control, adjustment of mA or kV according to patient size, and/or use of iterative reconstruction technique. Electronically signed by Yonas Ignacio 08/09/2018 11:11 AM 08/09/18 1111 Interpreting Physician: Yonas Hamilton MD Dictated Date/Time: 08/09/18 1109 cc: Constantine Mccoy MD; None,PCP) - CONSULTS/PCP/HOSPITALIST Notification #1 *Consult/PCP/Hospitalist*: Gisselle for Hospitalist Time Discussed: 12:29 Consult Disposition: Will see in ED, Admit Departure - Departure Date of Disposition Decision: 08/09/18 Time of Disposition Decision: 12:20 DIAGNOSIS: Altered mental status, Hyperkalemia, Hyponatremia, Constipation Disposition: ADMITTED INPATIENT 09 Certified Medical Emergency: Emergent Condition: Fair Referrals and Follow-Ups: None,PCP [Primary Care Provider] - - Critical Care Note This patient required my direct & personal management of CC.: No Attestation - Physician/ ELKE Attestation Patient care was provided by Advanced Practice Provider:: No The physician spent face to face time with patient:: Yes Advanced Practice Provider documentation review:: Supervising physician onsite and consulted in the evaluation and care of this patient. The physician did have a face to face encounter with the patient.
[2018-08-09] MEDS ORDERED: DEMEROL IV ONE (08:15)
[2018-08-09] MEDS ORDERED: PHENERGAN IM ONE (08:15)
[2018-08-09 08:25] LABS: ESTIMATED GFR > 60
[2018-08-09 08:50] LABS: AGAP 11; ALB/GLOB RATIO 0.8; ALBUMIN 3.6 g/dL (3.5-5.0); ALKALINE PHOSPHATASE 205 U/L (32-104); AMYLASE 54 U/L (20-200); BUN 12 mg/dL (8-22); CALCIUM 9.3 mg/dL (8.8-10.2); CHLORIDE 88 mmol/L (98-107); COSMO 261; CREATININE 0.7 mg/dL (0.5-0.9); GLUCOSE 198 mg/dL (70-104); GOT 61 U/L (10-30); GPT 44 U/L (10-36); LIPASE 55 U/L (13-60); POTASSIUM 5.4 mmol/L (3.5-5.1); SODIUM 127 mmol/L (136-145); TCO2 28 mmol/L (25-35); TOTAL BILIRUBIN 0.78 mg/dL (0.20-1.00); TOTAL PROTEIN 8.4 g/dL (6.3-8.3)
[2018-08-09 08:52] LABS: BASO# 0.08 X1000 (0.0-0.2); BASO% 0.6 % (0.0-0.8); EOS# 0.21 X1000 (0.0-0.7); EOS% 1.6 % (0.0-10.0); IMM GRAN# 0.02 X1000 (0.0-0.04); IMM GRAN% 0.2 % (0.0-0.5); LYMPH# 3.18 X1000 (1.2-3.4); LYMPH% 24.9 % (20.5-51.1); MONO# 1.09 X1000 (0.11-0.59); MONO% 8.5 % (1.7-9.3); NEUT# 8.17 X1000 (1.4-6.5); NEUT% 64.2 % (42.2-75.2)
[2018-08-09 09:39] LABS: URINE SOURCE CLEAN CATCH
[2018-08-09 09:47] LABS: BILIRUBIN URINE NEGATIVE (NEGATIVE); BLOOD URINE NEGATIVE (NEGATIVE); COLOR YELLOW; GLUCOSE URINE NEGATIVE (NEGATIVE); KETONE URINE NEGATIVE (NEGATIVE); LEUKOCYTES URINE NEGATIVE (NEGATIVE); NITRITE URINE NEGATIVE (NEGATIVE); PROTEIN URINE NEGATIVE (NEGATIVE); SP GRAVITY URINE 1.009; TURBIDITY URINE CLEAR (CLEAR); UROBILINOGEN URINE NORMAL (NORMAL)
[2018-08-09 09:48] LABS: UR EPITHELIAL CELLS <10 /HPF (<10); URINE BACTERIA NEGATIVE /HPF; URINE RBC <10 /HPF (<10); URINE WBC <10 /HPF (<10)
[2018-08-09] MEDS ORDERED: TYLENOL PO ONE (10:02)
[2018-08-09] MEDS ORDERED: TYLENOL ONE (10:05)
--- NOTE | 2018-08-09 11:08 | Diag Imaging Result Doc PS360 ---
EXAM: CT ABD/PELVIS W/IV CONT ONLY HISTORY: abdo pain TECHNIQUE: Emergency CT abdomen and pelvis with intravenous contrast COMPARISON: 06/30/2018 FINDINGS: There is fatty infiltration of the liver. There are many scattered hypodense nodules throughout the liver. No fluid about the liver on the current exam. The gallbladder has been removed. Normal spleen, pancreas, adrenal glands, and kidneys. The spleen is not enlarged on the current exam. No hydronephrosis. Mild dilatation to the mid to distal aorta measuring 2.3 cm in maximum diameter. Prominent atherosclerosis. There is a large amount of stool throughout the colon. The urinary bladder is only mildly distended. The uterus has been removed. Orthopedic replacement of the left hip. No pelvic mass. IMPRESSION: 1.Fatty liver with multiple hypodense nodules throughout. These are actually more difficult to appreciate on the current exam. 2.No free fluid on the current study 3.Severe constipation 4.Prominent atherosclerosis 5.Hysterectomy This exam was performed using automated exposure control, adjustment of mA or kV according to patient size, and/or use of iterative reconstruction technique. Electronically signed by Yonas Ignacio 08/09/2018 11:06 AM
--- NOTE | 2018-08-09 11:13 | Diag Imaging Result Doc PS360 ---
EXAM: CT HEAD W/O CONTRAST HISTORY: severe headache TECHNIQUE: Emergency CT of the head without contrast COMPARISON: 03/19/2018 FINDINGS: No parenchymal hemorrhage. No epidural or subdural hematoma. No subarachnoid hemorrhage. No mass identified on this noncontrasted exam. No hydrocephalus. No sinus opacification. IMPRESSION: No hemorrhage. Negative brain CT without contrast. This exam was performed using automated exposure control, adjustment of mA or kV according to patient size, and/or use of iterative reconstruction technique. Electronically signed by Yonas Ignacio 08/09/2018 11:11 AM
[2018-08-09] MEDS ORDERED: FLEET ENEMA PR ONE (11:53)
[2018-08-09] MEDS ORDERED: KAYEXALATE PO ONE (12:26)
[2018-08-09] MEDS ORDERED: ZOFRAN IV PRN (13:41)
[2018-08-09] MEDS ORDERED: DUONEB (A & A) INH PRN (13:41)
[2018-08-09] MEDS ORDERED: TYLENOL PO PRN (13:41)
[2018-08-09] MEDS ORDERED: LACTULOSE PO ONE (14:16)
[2018-08-09 14:33] LABS: UR AMPHETAMINES QUAL NONE DETECTED (NONE DETECT); UR BARBITUATES QUAL NONE DETECTED (NONE DETECT); UR BENZODIAZEPIN QUAL NONE DETECTED (NONE DETECT); UR CANNABINOIDS QUAL NONE DETECTED (NONE DETECT); UR COCAINE QUAL NONE DETECTED (NONE DETECT); UR METHADONE QUAL NONE DETECTED (NONE DETECT); UR OPIATES QUAL NONE DETECTED (NONE DETECT); UR OXYCODONE QUAL PRESUMPTIVE POSITIVE (NONE DETECT); UR PCP QUAL NONE DETECTED (NONE DETECT)
--- NOTE | 2018-08-09 15:17 | HISTORY AND PHYSICAL ---
PRIMARY CARE PROVIDER: Dr. Melanie Jackson out of [place]. UROLOGIST: Dr. Ellington. AIRCRAFT AIR CONDITIONING MECHANIC: Dr. Redd Flanagan at [facility]. CHIEF COMPLAINT: Confusion and constipation. HISTORY OF PRESENT ILLNESS: Ms. Yolande Mosqueda is a 62-year-old female with a medical history of cirrhosis who occasionally gets confused. She presents with confusion that started yesterday evening. Apparently she tried to void in the refrigerator. She had a fall yesterday morning. She has been having some balance issues and also has some complaints of abdominal pain, which imaging showed constipation. Her ammonia level is not too far off. It is 40. Her sodium is a little low. Potassium is a little high. So, she is going to get lactulose and Kayexalate along with an enema. She will be started on some IV fluids. Will admit to the medical floor. PAST MEDICAL HISTORY: 1. Diabetes mellitus type 2. 2. Question of cancer, but the patient denies any cancer. 3. Cirrhosis, on lactulose. 4. Hypertension. 5. COPD. 6. Migraines. 7. History of colon cancer 25 to 30 years ago and had colon resection. 8. History of abdominal aortic aneurysm. PAST SURGICAL HISTORY: 1. Hernia repair. 2. Hysterectomy. 3. Bladder tack. 4. Partial colon resection. 5. Cholecystectomy. 6. Paracenteses from [facility]. SOCIAL HISTORY: 40 pack per year smoker. Denies alcohol or illicit drug use. Lives at home with her . FAMILY HISTORY: Denies any cancer history. REVIEW OF SYSTEMS: A 14-point review of systems are complete and all were negative except for those mentioned in the above HPI. PHYSICAL EXAMINATION: VITAL SIGNS: Temperature 98.0, heart rate 100, blood pressure 144/78, O2 saturation 100% on room air. GENERAL: Ms. Yolande Mosqueda is a 62-year-old female. She is in no acute distress. She is answering questions appropriately. HEENT: Atraumatic and normocephalic. Pupils are equal, round and reactive to light. Extraocular movements intact. Mucous membranes are dry. NECK: Trachea midline. CARDIOVASCULAR: S1, S2. Regular rate and rhythm. No rubs, gallops or murmurs. No lower extremity edema. Plus 2 dorsalis and radial pulses. Negative JVD or carotid bruits. PULMONARY: Clear to auscultate. Bilateral breath sounds. No accessory muscle use or work of breathing noted. GASTROINTESTINAL: Soft. Mild tenderness in bilateral lower quadrants. Positive bowel sounds x4. EXTREMITIES: Moves all extremities equally with full range of motion. NEUROLOGICAL: Alert and oriented x3. Was slow to respond with some of the answers. Sensory is intact. Follows commands. SKIN: Warm, dry and intact except for the left elbow where she has an abrasion from her fall yesterday morning. LABORATORY DATA: White blood cells 12,000, hemoglobin 14, hematocrit 43, platelet count 205. Sodium 127, potassium 5.4, BUN 12, creatinine 0.7, glucose 198, calcium 9.3, bilirubin 0.78, AST 61, ALT 44. Ammonia 40. Albumin 3.6. Amylase 54, lipase 55. Urinalysis negative. IMAGING: Abdominopelvic CT showed fatty liver with multiple hypodense nodules throughout. No free fluid. Severe constipation. Prominent atherosclerosis. Hysterectomy. Head CT with no hemorrhage; no signs of acute stroke. ASSESSMENT AND PLAN: 1. Intermittent hepatic encephalopathy. Apparently she gets some intermittent spells of confusion. She has so for a long time, she states. Right now she feels like she is clearheaded and that she could go home. 2. Hyponatremia. Follow sodium level 3. Hyperkalemia. She is going to get a dose of Kayexalate. 4. Severe constipation. She is going to get Kayexalate, lactulose, and enema. At the moment she is refusing the enema and she has had one small bowel movement since she has been here. 5. Diabetes mellitus type 2 with hyperglycemia. Will do patterned blood glucose and sliding scale insulin. 6. Liver cirrhosis. She states she does not eat a lot of sodium because she is supposed to be on a lower sodium diet. Will continue her lactulose. Her ammonia level is 40. 7. Chronic obstructive pulmonary disease. No exacerbation. 8. Migraines. 9. Hypertension. 10.Deep venous thrombosis prophylaxis. Will do sequential compression devices. 11.Tobacco abuse. Cessation discussed. Dictated by RAVI Perry for Benigno Roberto MD cc: RAVI Perry MD Patient seen and examined by me. I agree with assessment and plan. Dr. Felisa BOATENG
[2018-08-09] MEDS: NS 1,000 ML IV SCH (16:38)
[2018-08-09] MEDS: HUMULIN R SUBQ SCH ×2 (17:51→20:30)
[2018-08-09] MEDS: PERCOCET-5 PO PRN ×2 (17:56→23:55)
[2018-08-09] MEDS ORDERED: PERCOCET-5 PO ONE (18:51)
[2018-08-09 20:36] LABS: URINE SOURCE CLEAN CATCH
[2018-08-09 20:55] LABS: BILIRUBIN URINE NEGATIVE (NEGATIVE); BLOOD URINE NEGATIVE (NEGATIVE); COLOR YELLOW; GLUCOSE URINE NEGATIVE (NEGATIVE); KETONE URINE NEGATIVE (NEGATIVE); LEUKOCYTES URINE NEGATIVE (NEGATIVE); NITRITE URINE NEGATIVE (NEGATIVE); PROTEIN URINE TRACE mg/dL (NEGATIVE); SP GRAVITY URINE 1.047; TURBIDITY URINE CLEAR (CLEAR); UROBILINOGEN URINE NORMAL (NORMAL)
[2018-08-09 20:56] LABS: UR EPITHELIAL CELLS <10 /HPF (<10); URINE BACTERIA 1+ /HPF; URINE RBC <10 /HPF (<10); URINE WBC <10 /HPF (<10)
[2018-08-09] MEDS ORDERED: MELATONIN PO SCH (23:45)
[2018-08-09] MEDS ORDERED: BENADRYL PO ONE (23:49)
[2018-08-10] MEDS: NS 1,000 ML IV SCH (04:37)
[2018-08-10] MEDS: PERCOCET-5 PO PRN ×2 (05:52→11:48)
[2018-08-10] MEDS: HUMULIN R SUBQ SCH ×2 (06:15→11:18)
[2018-08-10 06:26] LABS: BASO# 0.08 X1000 (0.0-0.2); EOS# 0.11 X1000 (0.0-0.7); EOS% 1.3 % (0.0-10.0); HEMATOCRIT 39.8 % (37.0-47.0); HEMOGLOBIN 13.2 g/dL (12.0-16.0); LYMPH# 2.49 X1000 (1.2-3.4); MCH 27.7 PG (27-31); MCHC 33.2 g/dL (33-37); MCV 83.4 FL (81-99); MONO# 0.97 X1000 (0.11-0.59); MONO% 11.7 % (1.7-9.3); NEUT# 4.64 X1000 (1.4-6.5); PLT 169 X1000 (130-400); RBC 4.77 XMIL (4.2-5.4); RDW 19.2 % (11.5-14.5); WBC 8.29 X1000 (4.8-10.8)
[2018-08-10 06:33] LABS: INR 1.05; PROTIME 14.6 Seconds (11.0-16.0); PTT 30.9 Seconds (22.3-41.8)
[2018-08-10 07:02] LABS: AGAP 11; ALB/GLOB RATIO 0.7; ALBUMIN 3.2 g/dL (3.5-5.0); ALKALINE PHOSPHATASE 186 U/L (32-104); BUN 11 mg/dL (8-22); CALCIUM 8.8 mg/dL (8.8-10.2); CHLORIDE 96 mmol/L (98-107); COSMO 274; CREATININE 0.6 mg/dL (0.5-0.9); ESTIMATED GFR > 60; GLUCOSE 181 mg/dL (70-104); GOT 61 U/L (10-30); GPT 37 U/L (10-36); MAGNESIUM 1.9 mg/dL (1.5-2.7); POTASSIUM 4.9 mmol/L (3.5-5.1); SODIUM 135 mmol/L (136-145); TCO2 28 mmol/L (25-35); TOTAL BILIRUBIN 0.74 mg/dL (0.20-1.00); TOTAL PROTEIN 7.9 g/dL (6.3-8.3)
[2018-08-10] MEDS ORDERED: LOVENOX SUBQ SCH (09:00)
[2018-08-10] MEDS ORDERED: REGLAN PO SCH (11:00)
[2018-08-10] MEDS: ATIVAN PO SCH ×2 (11:12→14:10)
[2018-08-10] MEDS: NEURONTIN PO SCH ×2 (11:12→14:11)
[2018-08-10] MEDS ORDERED: LIORESAL PO SCH (12:00)
[2018-08-10] MEDS ORDERED: CARAFATE PO SCH (13:00)
[2018-08-10 13:01] VITALS: BP 116/58
[2018-08-10] MEDS ORDERED: ALBUTEROL NEB INH SCH (15:00)
--- NOTE | 2018-08-10 15:40 | DISCHARGE SUMMARY ---
ADMISSION DATE: 08/09/2018 DISCHARGE DATE: 08/10/2018 PRINCIPAL DIAGNOSIS: Hepatic encephalopathy. SECONDARY DIAGNOSES: 1. Hyponatremia, now resolved. 2. Hyperkalemia, now resolved. 3. Constipation. 4. Diabetes mellitus type 2. 5. History of liver cirrhosis. 6. COPD. 7. Migraine headaches. 8. Hypertension. 9. History of abdominal aortic aneurysm. DISCHARGE MEDICATIONS: Include the followin. Cymbalta 30 mg p.o. twice a day, Neurontin 600 mg p.o. 3 times a day, VESIcare 10 mg p.o. daily, Singulair 10 mg in the evening, Lasix 40 mg p.o. daily, Reglan 10 mg p.o. 3 times a day, baclofen 10 mg p.o. 3 times a day with meals, omeprazole 40 mg p.o. daily, albuterol nebs, sucralfate 1 g 4 times a day, spironolactone 100 mg p.o. daily, lactulose 30 mL twice a day, metformin 1 g p.o. twice a day, glimepiride 4 mg p.o. daily, lorazepam 1 mg p.o. 3 times a day, Percocet 10 one every 6 hours. CONSULTATIONS DONE DURING HOSPITAL STAY: None. PROCEDURES DONE DURING THIS HOSPITAL STAY: 1. Head CT 07/20/2018. 2. Abdominal pelvic CT 08/09/2018. HOSPITAL COURSE: Ms. Yolande Mosqueda is a 62-year-old female who has a history of liver cirrhosis. Presents to the hospital because of altered mental status. The patient was thought to have hepatic encephalopathy and was managed accordingly. She was maintained on lactulose. She seemed to have improved. She did have some electrolyte derangement at the time of presentation which have corrected. Sodium level was low, potassium level was elevated. These have now improved. At this time she has done well, she is stable. PHYSICAL EXAMINATION: Vital Signs: As follows: Temperature 97.8, pulse 89, blood pressure is 116/58, oxygen saturation 99%. HEENT: Atraumatic, normocephalic. Cardiovascular: S1, S2. Respiratory: Has evidence of good air entry bilaterally. Abdomen: Soft, nontender. No masses felt. Extremities: No evidence of edema. Central Nervous System: No obvious focal deficit noted. LABORATORY: WBC 8.9, hematocrit is 39.3, platelet count of 169,000. INR is 1.05 sodium is 135 potassium 3.9, chloride 96, bicarb 28, BUN is 11, creatinine 0.6. PLAN: Discharge home today. Follow up with the primary care physician outpatient. cc: Benigno Roberto MD
[2018-08-10] MEDS ORDERED: CYMBALTA PO SCH (21:00)
[2018-08-10] MEDS ORDERED: SINGULAIR PO SCH (21:00)
[2018-08-10] MEDS ORDERED: LACTULOSE PO SCH (21:00)
[2018-08-11] MEDS ORDERED: LASIX PO SCH (09:00)
[2018-08-11] MEDS ORDERED: VESICARE PO SCH (09:00)
[2018-08-11] MEDS ORDERED: ALDACTONE PO SCH (09:00)
== END 2018-08-10 16:09 | disposition home or self-care (01) | DRG 442 ==
LOC: ED 07:20 → EDIPHOLD 07:21 → 3N 16:27
PROVIDERS: ATTEND Internal Medicine
CPT/HCPCS: 70450; 74177; 80053; 80101; 80301; 80307; 80324; 80345; 80346; 80353; 80358; 80361; 80365; 81001; 82140; 82150; 82948; 83690; 83735; 83992; 85025; 85610; 85730; 94799; 96372; 96374; 99285; A9270; G0431; G0434; G0479; G0480; J2175; J2550; J7030; Q9967; XXXXX